=== PATIENT | male | born 1975 | race Caucasian/White ===

== ENCOUNTER 2021-06-13 19:16 | Inpatient (IN) | payer BC, OTHER ==
[2021-06-14] MEDS ORDERED: PIPERACILLIN-TAZOBACTAM 3.375 GM in SODIUM CHLORIDE 0.9% 100 ML IVPB STA (00:02)
[2021-06-14] MEDS ORDERED: ACETAMINOPHEN TAB 500 MG TAB PO STA (00:02)
[2021-06-14] MEDS ORDERED: IBUPROFEN 600 MG TAB PO STA (00:02)
[2021-06-14] MEDS ORDERED: VANCOMYCIN IV PER PHARMACY 1 EACH MISC MISCELLANE PRN ×2 (00:03→04:57)
[2021-06-14] MEDS ORDERED: ONDANSETRON 4 MG/2 ML VIAL IVP STA (00:04)
[2021-06-14] MEDS ORDERED: HYDROmorphone 1 MG/ML 1 ML SYRINGE IVP STA (00:04)
[2021-06-14] MEDS ORDERED: VANCOMYCIN 1,250 MG in SODIUM CHLORIDE 0.9% 250 ML IVPB ONE (00:15)
[2021-06-14 00:43] LABS: Basophils # (A) 0.1 k/uL (0-0.2); Basophils % (A) 0 %; Eosinophils # (A) 0.1 k/uL (0-0.7); Eosinophils % (A) 1 %; HCT 42.7 % (39.0-53.0); HGB 14.9 gm/dL (13.0-17.5); Lymphocytes # (A) 0.7 k/uL (1.0-4.8); Lymphocytes % (A) 4 %; MCH 34.3 pg (25.0-35.0); MCV 98.1 fL (80.0-100.0); Mean Platelet Volume 8.5; Monocytes # (A) 1.2 k/uL (0-1.0); Monocytes % (A) 6 %; Neutrophils # (A) 17.3 k/uL (1.3-7.7); Neutrophils % (A) 88 %; Platelet Count 205 k/uL (150-450); RBC 4.35 m/uL (4.30-5.90); RDW 12.4 % (11.5-15.5); WBC 19.7 k/uL (3.8-10.6)
--- NOTE | 2021-06-14 00:50 | XR ---
EXAMINATION TYPE: XR hand complete RT DATE OF EXAM: 06/14/2021 COMPARISON: NONE HISTORY: Hand infection TECHNIQUE: 3 views FINDINGS: Metacarpals are intact. I see no fracture nor dislocation. Joint spaces are normal. There i s soft tissue swelling around the hand. IMPRESSION: Soft tissue swelling. No fracture. No sign of osteomyelitis.
[2021-06-14] MEDS: SODIUM CHLORIDE 0.9% 500 ML 500 ML IV SCH ×3 (00:59→01:02)
[2021-06-14 01:02] LABS: Albumin 3.8 g/dL (3.5-5.0); Calcium 8.8 mg/dL (8.4-10.2); Potassium 4.1 mmol/L (3.5-5.1); Total Bilirubin 0.7 mg/dL (0.2-1.3); Total Protein 7.1 g/dL (6.3-8.2)
[2021-06-14 01:19] LABS: INR 0.9 (<1.2); Partial Thromboplastin Time 26.6 sec (22.0-30.0); Prothrombin Time 9.7 sec (9.0-12.0)
[2021-06-14] MEDS ORDERED: ONDANSETRON 4 MG/2 ML VIAL IVP PRN (01:42)
[2021-06-14] MEDS ORDERED: HYDROmorphone 1 MG/ML 1 ML SYRINGE IVP PRN ×2 (01:42→13:20)
[2021-06-14] MEDS ORDERED: NALOXONE 0.4 MG/ML 1 ML VIAL IV PRN (01:42)
--- NOTE | 2021-06-14 01:44 | ED ---
Skin/Abscess/FB HPI - General Chief complaint: Skin/Abscess/Foreign Body Stated complaint: Cellulitis Time Seen by Provider: 06/13/21 23:41 Source: patient, family Mode of arrival: ambulatory Limitations: no limitations - History of Present Illness Initial comments: 45 year-old male patient presents to the emergency department for evaluation of right hand pain and swelling. Patient state he had injury at work several days ago. States that hand began swelling a 2-3 days ago and has been getting worse. States that it hurts to move his fingers. He denies known fever or chills. Denies history of diabetes or similar symptoms. Denies taking any medication for his symptoms. - Related Data Previous Rx's Medication Instructions Recorded Cyclobenzaprine [Flexeril] 5 mg PO HS 3 Days tablet 08/17/16 Ibuprofen [Motrin] 200 - 400 mg PO Q6HR 7 Days tab 08/17/16 Allergies Allergy/AdvReac Type Severity Reaction Status Date / Time No Known Allergies Allergy Verified 06/13/21 20:35 Review of Systems ROS Statement: Those systems with pertinent positive or pertinent negative responses have been documented in the HPI. ROS Other: All systems not noted in ROS Statement are negative. Past Medical History Past Medical History: No Reported History History of Any Multi-Drug Resistant Organisms: None Reported Past Surgical History: No Surgical Hx Reported Past Psychological History: No Psychological Hx Reported Smoking Status: Never smoker Past Alcohol Use History: None Reported Past Drug Use History: None Reported General Exam Limitations: no limitations General appearance: alert, in no apparent distress, other (This is a well- developed, well-nourished adult male patient in no acute distress. Vital signs upon presentation to 199.0F and pulse 106, respirations 22, blood pressure 150/97, pulse ox 97% on room air.) ENT exam: Present: normal exam, normal oropharynx, mucous membranes moist Respiratory exam: Present: normal lung sounds bilaterally. Absent: respiratory distress, wheezes, rales, rhonchi, stridor Cardiovascular Exam: Present: regular rate, normal rhythm, normal heart sounds. Absent: systolic murmur, diastolic murmur, rubs, gallop, clicks GI/Abdominal exam: Present: soft, normal bowel sounds. Absent: distended, tenderness, guarding, rebound, rigid Extremities exam: Present: full ROM, normal capillary refill, other (There is significant soft tissue swelling to the right hand and fingers, especially the right middle finger. There is streaking erythema up the right forearm. No axillary lymphadenopathy.). Absent: normal inspection, tenderness, pedal edema, joint swelling, calf tenderness Neurological exam: Present: alert, oriented X3, CN II-XII intact Psychiatric exam: Present: normal affect, normal mood Skin exam: Present: warm, dry, intact, normal color. Absent: rash Course Vital Signs 06/13/21 06/14/21 20:30 00:00 Temperature 99 F 101.2 F H Pulse Rate 106 H Respiratory 22 Rate Blood Pressure 158/97 O2 Sat by Pulse 97 Oximetry Medical Decision Making - Medical Decision Making 45-year-old male patient presents to the emergency department today for evaluation of right hand swelling and erythema, worse over the middle finger. Middle fingers concerning for tenosynovitis. Labs reviewed and did reveal white blood cell count of 19.7, sodium 129, but BUN 27, creatinine 1.8. Glucose 200. X-ray of the hand is negative. He will be admitted with IV antibiotics. Consult to orthopedics. My attending is Dr. Miranda. - Lab Data Result diagrams: 06/14/21 00:27 06/14/21 00:27 Lab Results 06/14/21 06/14/21 06/14/21 Range/Units 00:27 00:27 00:27 WBC 19.7 H (3.8-10.6) k/uL RBC 4.35 (4.30-5.90) m/uL Hgb 14.9 (13.0-17.5) gm/dL Hct 42.7 (39.0-53.0) % MCV 98.1 (80.0-100.0) fL MCH 34.3 (25.0-35.0) pg MCHC 35.0 (31.0-37.0) g/dL RDW 12.4 (11.5-15.5) % Plt Count 205 (150-450) k/uL MPV 8.5 Neutrophils % 88 % Lymphocytes % 4 % Monocytes % 6 % Eosinophils % 1 % Basophils % 0 % Neutrophils # 17.3 H (1.3-7.7) k/uL Lymphocytes # 0.7 L (1.0-4.8) k/uL Monocytes # 1.2 H (0-1.0) k/uL Eosinophils # 0.1 (0-0.7) k/uL Basophils # 0.1 (0-0.2) k/uL PT 9.7 (9.0-12.0) sec INR 0.9 (<1.2) APTT 26.6 (22.0-30.0) sec Sodium (137-145) mmol/L Potassium (3.5-5.1) mmol/L Chloride (98-107) mmol/L Carbon Dioxide (22-30) mmol/L Anion Gap mmol/L BUN (9-20) mg/dL Creatinine (0.66-1.25) mg/dL Est GFR (CKD-EPI)AfAm (>60 ml/min/1.73 sqM) Est GFR (CKD-EPI)NonAf (>60 ml/min/1.73 sqM) Glucose (74-99) mg/dL Plasma Lactic Acid Remy (0.7-2.0) mmol/L Calcium (8.4-10.2) mg/dL Total Bilirubin (0.2-1.3) mg/dL AST (17-59) U/L ALT (4-49) U/L Alkaline Phosphatase (38-126) U/L Total Protein (6.3-8.2) g/dL Albumin (3.5-5.0) g/dL Urine Color Yellow Urine Appearance Clear (Clear) Urine pH 6.0 (5.0-8.0) Ur Specific [place] 1.012 (1.001-1.035) Urine Protein 3+ H (Negative) Urine Glucose (UA) Trace H (Negative) Urine Ketones Negative (Negative) Urine Blood Trace H (Negative) Urine Nitrite Negative (Negative) Urine Bilirubin Negative (Negative) Urine Urobilinogen <2.0 (<2.0) mg/dL Ur Leukocyte Esterase Negative (Negative) Urine RBC 2 (0-5) /hpf Urine WBC 30 H (0-5) /hpf Ur Squamous Epith Cells <1 (0-4) /hpf Amorphous Sediment Rare H (None) /hpf Hyaline Casts 131 H (0-2) /lpf Urine Mucus Rare H (None) /hpf Coronavirus (PCR) (Not Detectd) 06/14/21 06/14/21 06/14/21 Range/Units 00:27 00:27 01:09 WBC (3.8-10.6) k/uL RBC (4.30-5.90) m/uL Hgb (13.0-17.5) gm/dL Hct (39.0-53.0) % MCV (80.0-100.0) fL MCH (25.0-35.0) pg MCHC (31.0-37.0) g/dL RDW (11.5-15.5) % Plt Count (150-450) k/uL MPV Neutrophils % % Lymphocytes % % Monocytes % % Eosinophils % % Basophils % % Neutrophils # (1.3-7.7) k/uL Lymphocytes # (1.0-4.8) k/uL Monocytes # (0-1.0) k/uL Eosinophils # (0-0.7) k/uL Basophils # (0-0.2) k/uL PT (9.0-12.0) sec INR (<1.2) APTT (22.0-30.0) sec Sodium 129 L (137-145) mmol/L Potassium 4.1 (3.5-5.1) mmol/L Chloride 94 L (98-107) mmol/L Carbon Dioxide 21 L (22-30) mmol/L Anion Gap 14 mmol/L BUN 27 H (9-20) mg/dL Creatinine 1.80 H (0.66-1.25) mg/dL Est GFR (CKD-EPI)AfAm 51 (>60 ml/min/1.73 sqM) Est GFR (CKD-EPI)NonAf 44 (>60 ml/min/1.73 sqM) Glucose 200 H (74-99) mg/dL Plasma Lactic Acid Remy 1.3 (0.7-2.0) mmol/L Calcium 8.8 (8.4-10.2) mg/dL Total Bilirubin 0.7 (0.2-1.3) mg/dL AST 34 (17-59) U/L ALT 26 (4-49) U/L Alkaline Phosphatase 97 (38-126) U/L Total Protein 7.1 (6.3-8.2) g/dL Albumin 3.8 (3.5-5.0) g/dL Urine Color Urine Appearance (Clear) Urine pH (5.0-8.0) Ur Specific [place] (1.001-1.035) Urine Protein (Negative) Urine Glucose (UA) (Negative) Urine Ketones (Negative) Urine Blood (Negative) Urine Nitrite (Negative) Urine Bilirubin (Negative) Urine Urobilinogen (<2.0) mg/dL Ur Leukocyte Esterase (Negative) Urine RBC (0-5) /hpf Urine WBC (0-5) /hpf Ur Squamous Epith Cells (0-4) /hpf Amorphous Sediment (None) /hpf Hyaline Casts (0-2) /lpf Urine Mucus (None) /hpf Coronavirus (PCR) Not Detected (Not Detectd) - Radiology Data Radiology results: report reviewed, image reviewed 3 views of the right hand are obtained. Report was reviewed in its entirety. Impression by Dr. Sepulveda shows soft tissue swelling. No fracture. No sign of osteomyelitis. Disposition Clinical Impression: Cellulitis of right hand, Sepsis, Tenosynovitis of right hand Disposition: ADMITTED IP TO THIS [facility] Condition: Serious Decision to Admit Reason: Admit from EC Decision Date: 06/14/21 Decision Time: 01:44
[2021-06-14] MEDS: SODIUM CHLORIDE 0.9% 1,000 ML IV SCH ×3 (01:56→19:26)
[2021-06-14 01:58] LABS: Amorphous Sediment,Urine Rare /hpf; Appearance,Urine Clear (Clear); Bilirubin,Urine Negative (Negative); Blood,Urine Trace (Negative); Color,Urine Yellow; Glucose,Urine (UA) Trace (Negative); Hyaline Casts,Urine 131 /lpf (0-2); Ketones,Urine Negative (Negative); Leukocyte Esterase,Urine Negative (Negative); Mucus,Urine Rare /hpf; Nitrite,Urine Negative (Negative); Protein,Urine 3+ (Negative); RBC,Urine 2 /hpf (0-5); Specific Gravity,Urine 1.012 (1.001-1.035); Squamous Epithelial Cell,Urine <1 /hpf (0-4); Urobilinogen,Urine <2.0 mg/dL (<2.0); WBC,Urine 30 /hpf (0-5)
--- NOTE | 2021-06-14 05:03 | P.HPIM ---
History of Present Illness H&P Date: 06/14/21 Chief Complaint: Right hand swelling 45-year-old male with significant past medical history Patient comes in due to progressive swelling pain and loss of function of his right hand which has been going on and progressively getting worse over the past 3 days he recalls injury while working on some projects with his hands prior to that which she didn't think much of it at the time. He denies any fevers or chills denies any nausea vomiting denies any chest pain trouble breathing. He denies any numbness or tingling at his fingertips In the ED he was evaluated suspected to have sepsis with infection of the right hand swelling is mainly over the middle finger imaging showed no acute fractures Review of Systems Pertinent positives as noted in HPI. All other systems were reviewed and are negative Past Medical History Past Medical History: No Reported History History of Any Multi-Drug Resistant Organisms: None Reported Past Surgical History: No Surgical Hx Reported Past Psychological History: No Psychological Hx Reported Smoking Status: Never smoker Past Alcohol Use History: None Reported Past Drug Use History: None Reported - Past Family History Family Family Medical History: No Reported History Medications and Allergies Home Medications Medication Instructions Recorded Confirmed Type Cyclobenzaprine [Flexeril] 5 mg PO HS 3 Days tablet 08/17/16 Rx Ibuprofen [Motrin] 200 - 400 mg PO Q6HR 7 Days tab 08/17/16 Rx Allergies Allergy/AdvReac Type Severity Reaction Status Date / Time No Known Allergies Allergy Verified 06/13/21 20:35 Physical Exam Vitals: Vital Signs Temp Pulse Resp BP Pulse Ox 06/14/21 00:00 101.2 F H 06/13/21 20:30 99 F 106 H 22 158/97 97 Intake and Output 06/13/21 06/13/21 06/14/21 14:59 22:59 06:59 Other: Weight 68.039 kg Constitutional: No acute distress, conversant, pleasant Eyes: Anicteric sclerae, moist conjunctiva, Pupils equal round reactive to light ENMT: NC/AT Oropharynx clear, no erythema, or exudates Neck: Supple, FROM, no masses, or JVD No carotid bruits No thyromegaly Lungs: Clear to auscultation Clear to percussion Normal respiratory effort, no accessory muscle use Cardiovascular: Heart regular in rate and rhythm, No murmurs, gallops, or rubs No peripheral edema Abdominal: Soft Nontender, no guarding, rebound or rigidity Abdomen moving with respiration Normoactive bowel sounds No hepatomegaly, No splenomegaly No palpable mass No abdominal wall hernia noted Skin: Normal temperature, tone, texture, turgor No induration No subcutaneous nodules No rash, lesions No ulcers Extremities: Right hand swelling mainly over the right middle finger with area of small superficial hematoma, tenderness to palpation capillary refill is immediate limited range of motion due to swelling and pain. No digital cyanosis No clubbing Pedal pulses intact and symmetrical Radial pulses intact and symmetrical No calf tenderness Psychiatric: Alert and oriented to person, place and time Appropriate affect fair judgement Neuro Muscles Strength 5/5 in all 4 extremities limited exam over the right hand due to pain and swelling Sensation to light touch grossly present throughout Cranial nerves II-XII grossly intact No focal sensory deficits Lymphatics: no palpable cervical or supraclavicular , or inguinal lymph nodes Results CBC & Chem 7: 06/14/21 00:27 06/14/21 00:27 Labs: Abnormal Lab Results - Last 24 Hours (Table) 06/14/21 06/14/21 Range/Units 00:27 00:27 WBC 19.7 H (3.8-10.6) k/uL Neutrophils # 17.3 H (1.3-7.7) k/uL Lymphocytes # 0.7 L (1.0-4.8) k/uL Monocytes # 1.2 H (0-1.0) k/uL Sodium 129 L (137-145) mmol/L Chloride 94 L (98-107) mmol/L Carbon Dioxide 21 L (22-30) mmol/L BUN 27 H (9-20) mg/dL Creatinine 1.80 H (0.66-1.25) mg/dL Glucose 200 H (74-99) mg/dL Assessment and Plan Assessment: Sepsis secondary of right hand cellulitis Rule out hematoma, x-ray showed no evidence of acute fractures Antibiotics vancomycin Follow-up cultures Orthopedic surgery evaluation Lactic acid unremarkable Pain control with opiates Regular exams of neurovascular bundle over the right hand Acute kidney injury Hyponatremia IV fluid hydration with normal saline Avoid nephrotoxic meds Check creatine kinase Monitor urine output Monitor renal function Patient is full code DVT prophylaxis mechanical Anticipated length of stay more than 2 midnights Anticipated discharge
[2021-06-14 07:42] LABS: African American GFR (CKD) 42 (>60 ml/min/1.73 sqM); Anion Gap 9 mmol/L; Blood Urea Nitrogen 27 mg/dL (9-20); Carbon Dioxide 24 mmol/L (22-30); Chloride 100 mmol/L (98-107); Creatine Kinase 125 U/L (55-170); Glucose 119 mg/dL (74-99); Non-African American GFR(CKD) 36 (>60 ml/min/1.73 sqM); Potassium 3.7 mmol/L (3.5-5.1); Sodium 133 mmol/L (137-145)
--- NOTE | 2021-06-14 11:10 | P.NPCON ---
History of Present Illness - Reason for Consult acute renal failure - History of Present Illness Reason for consultation: Acute kidney injury History of present illness: Patient is a 45-year-old male seen in renal consultation for acute kidney injury. Unknown baseline renal function. Patient denies any history of kidney disease. Creatinine was 1.8 on admission and is up 2.1 this morning. Patient states he jammed his right finger about 4 days ago and the swelling has gotten worse. Patient states he iced it and also had a dropped without any improvement. He denies history of diabetes. Denies chest pain or shortness of breath. No edema. No hematuria or dysuria. No vomiting or diarrhea. Oral intake has been good. He denies regular use of nonsteroidals. He is currently receiving IV antibiotics. He also received a dose of Motrin in the ER. He did have a fever of 101.2F overnight. This morning his temperature was 98.8. Blood pressure stable. No hypotension noted. Denies family history of renal disease. No cough. He tested negative for coronavirus. Vital signs are stable. General: The patient appeared well nourished and normally developed. HEENT: Head exam is unremarkable. LUNGS: Breath sounds decreased. HEART: Rate and Rhythm are regular. ABDOMEN: Soft, no distention. EXTREMITITES: No edema. Past Medical History Past Medical History: No Reported History History of Any Multi-Drug Resistant Organisms: None Reported Past Surgical History: No Surgical Hx Reported Past Psychological History: No Psychological Hx Reported Smoking Status: Never smoker Past Alcohol Use History: None Reported Past Drug Use History: None Reported - Past Family History Family Family Medical History: No Reported History Medications and Allergies Home Medications Medication Instructions Recorded Confirmed Type Acetaminophen Tab [Tylenol Tab] 500 mg PO Q6H PRN 06/14/21 06/14/21 History Bimatoprost [Lumigan .01% Ophth 1 drop RIGHT EYE HS 06/14/21 06/14/21 History Soln] Allergies Allergy/AdvReac Type Severity Reaction Status Date / Time No Known Allergies Allergy Verified 06/14/21 07:56 Physical Exam Vitals: Vital Signs Temp Pulse Resp BP Pulse Ox 06/14/21 09:26 98.8 F 73 18 133/93 98 06/14/21 04:51 97.6 F 81 18 123/80 96 06/14/21 00:00 101.2 F H 06/13/21 20:30 99 F 106 H 22 158/97 97 Intake and Output 06/13/21 06/14/21 06/14/21 22:59 06:59 14:59 Other: Weight 68.039 kg Results - Lab Results Most recent lab results Calcium 8.0 mg/dL (8.4-10.2) L 06/14/21 05:36 06/14/21 00:27 06/14/21 05:36 Assessment and Plan Plan: Assessment: 1. Acute kidney injury secondary to ATN secondary to infection. Creatinine 1.8 on admission is 2.1 today. Unknown baseline renal function. 3+ proteinuria on UA. 2. Right hand infection on antibiotics. 3. Hypovolemic hyponatremia improved with IV hydration. 4. Metabolic acidosis secondary to acute kidney injury. Improved. 5. Elevated blood sugar. A1c pending. Plan: Repeat UA. Quantify proteinuria. Check renal ultrasound. Decrease rate of normal saline to 75 mL an hour. Avoid nephrotoxins. Continue to monitor renal function and urine output. Follow-up cultures. Thank you for the consultation. I will continue to follow the patient with you during her hospital stay.
--- NOTE | 2021-06-14 11:48 | P.PN ---
Progress Note - Text Progress Note Date: 06/14/21 Agree with consultation by Dariusz De Luna PA-C. Briefly the patient has developed progressively worsening pain, erythema, and fusiform swelling of the right middle finger following a work-related injury this past Wednesday when he jammed his finger. He has had subjective fevers and chills over the last 24 hours. He came to the emergency department overnight and had signs and symptoms of purulent flexor tenosynovitis, acute kidney injury secondary to infection, and a markedly elevated white count and CRP. I met with the patient and his father in the emergency department room and examined his hand. Clinically he has 4 out of 4 [place] signs (flexed posture of the finger, exquisite tenderness along the flexor tendon, severe pain with passive flexion of the finger, and fusiform swelling of the finger) as well as blistering of the skin over the dorsum of the finger and acsending erythema up the forearm. His creatinine has also progressively worsened since he's been in the emergency department and a nephrology consult thinks this is likely due from acute tubular necrosis secondary to infection. Due to the whole clinical picture I recommended emergent irrigation and debridement of the finger. We discussed formal open debridement with a Ngozi type incision versus small incision angiocatheter irrigation of the flexor tendon. Due to severity of his presentation my recommendation was to a formal open debridement with a Ngozi- type incision. The patient and his dad understand the emergent nature of this infection and agree with proceeding with an open debridement. We discussed the potential risks and complications at length. These include but are certainly not limited to risk of continued or worsened infection requiring further procedures, damage to local blood vessels or nerves, stiffness, tendon genet rupture, spread of infection, loss of soft tissue, increased use of the finger or hand, and possibly loss of life or limb. The patient and his dad voiced understanding of all these potential complications and also acknowledges that other less common complications are possible. We'll plan on taking the patient to the operating room for formal irrigation and debridement later this afternoon. I would also recommend infectious disease consultation to manage antibiotics.
--- NOTE | 2021-06-14 11:50 | P.CNOR ---
History of Present Illness - HPI Consult date: 06/14/21 History of present illness: This patient is a 45- year old male who is otherwise healthy that presented to [facility] ER on 06/14/21 with complaints of right hand swelling and pain. He states he jammed his hand about a week ago, and he has noticed increasing swelling, erythema, pain of the right hand, and specifically the right middle finger over the past 2-3 days. He originally presented to urgent care, who then sent the patient to the emergency department. Patient was started on IV antibiotics and admitted under the care of internal medicine with a consult placed to orthopedic surgery. Patient's creatinine was also elevated in the ER, therefore nephrology was consulted for evaluation of RONNY. Patient is seen and examined in the emergency department this morning. He notes right middle finger pain. He denies pain in the right forearm, wrist, hand. His pain is localized to the right middle finger. He states he otherwise feels well and denies fevers, chills, nausea, vomiting. He has not eaten today. Patient was febrile this morning at 101.2F, current temperature is 98.8. Past Medical History Past Medical History: No Reported History History of Any Multi-Drug Resistant Organisms: None Reported Past Surgical History: No Surgical Hx Reported Past Psychological History: No Psychological Hx Reported Smoking Status: Never smoker Past Alcohol Use History: None Reported Past Drug Use History: None Reported - Past Family History Family Family Medical History: No Reported History Medications and Allergies Home Medications Medication Instructions Recorded Confirmed Type Acetaminophen Tab [Tylenol Tab] 500 mg PO Q6H PRN 06/14/21 06/14/21 History Bimatoprost [Lumigan .01% Ophth 1 drop RIGHT EYE HS 06/14/21 06/14/21 History Soln] Allergies Allergy/AdvReac Type Severity Reaction Status Date / Time No Known Allergies Allergy Verified 06/14/21 07:56 Physical Examination On examination, patient is laying in bed in no apparent distress. He is alert and orientated x3. A focused examination of the right hand is conducted. On inspection of the right hand, there is diffuse swelling and erythema of the hand. There is fusiform swelling of the right middle finger. Patient is holding the middle finger in a flexed position. Small area of ecchymosis of the dorsal finger. No open wounds, lacerations. There is severe pain with palpation of the flexor tenon of the middle finger. There is no pain with palpation of the remaining fingers, thumb, hand, wrist, forearm, elbow. There is severe pain with passive flexion and extension of the middle finger. The hand and fingers are warm and well perfused. Motor and sensory function intact. Results Right hand x-ray 06/14/21: No acute or healing fractures. No acute bony abnorm alities. - Labs Labs: Abnormal Lab Results - Last 24 Hours (Table) 06/14/21 06/14/21 06/14/21 Range/Units 00:27 00:27 00:27 WBC 19.7 H (3.8-10.6) k/uL Neutrophils # 17.3 H (1.3-7.7) k/uL Lymphocytes # 0.7 L (1.0-4.8) k/uL Monocytes # 1.2 H (0-1.0) k/uL Sodium 129 L (137-145) mmol/L Chloride 94 L (98-107) mmol/L Carbon Dioxide 21 L (22-30) mmol/L BUN 27 H (9-20) mg/dL Creatinine 1.80 H (0.66-1.25) mg/dL Glucose 200 H (74-99) mg/dL Calcium (8.4-10.2) mg/dL C-Reactive Protein (<1.0) mg/dL Urine Protein 3+ H (Negative) Urine Glucose (UA) Trace H (Negative) Urine Blood Trace H (Negative) Urine WBC 30 H (0-5) /hpf Amorphous Sediment Rare H (None) /hpf Hyaline Casts 131 H (0-2) /lpf Urine Mucus Rare H (None) /hpf 06/14/21 06/14/21 Range/Units 05:36 05:36 WBC (3.8-10.6) k/uL Neutrophils # (1.3-7.7) k/uL Lymphocytes # (1.0-4.8) k/uL Monocytes # (0-1.0) k/uL Sodium 133 L (137-145) mmol/L Chloride (98-107) mmol/L Carbon Dioxide (22-30) mmol/L BUN 27 H (9-20) mg/dL Creatinine 2.10 H (0.66-1.25) mg/dL Glucose 119 H (74-99) mg/dL Calcium 8.0 L (8.4-10.2) mg/dL C-Reactive Protein 32.3 H (<1.0) mg/dL Urine Protein (Negative) Urine Glucose (UA) (Negative) Urine Blood (Negative) Urine WBC (0-5) /hpf Amorphous Sediment (None) /hpf Hyaline Casts (0-2) /lpf Urine Mucus (None) /hpf Microbiology - Last 24 Hours (Table) 06/14/21 00:27 Urine Culture - Preliminary Urine,Voided H & H 06/14/21 Range/Units 00:27 Hgb 14.9 (13.0-17.5) gm/dL Hct 42.7 (39.0-53.0) % Coagulation 06/14/21 Range/Units 00:27 INR 0.9 (<1.2) Result Diagrams: 06/14/21 00:27 06/14/21 05:36 Assessment and Plan Assessment: Acute flexor tenosynovitis, right middle finger Plan: - The clinical and imaging findings were discussed with the patient. The patient was also seen and examined by Dr. Clarke. Recommend formal incision and drainage of the right middle finger today in the operating room. Patient is agreeable to this plan. - Continue IV antibiotics per admitting team. - Medical management per internal medicine, nephrology. - NPO diet.
[2021-06-14] MEDS ORDERED: SODIUM CHLORIDE 0.9% 1,000 ML IV ONE (12:10)
[2021-06-14] MEDS ORDERED: SODIUM CHLORIDE 0.9% 100 ML with ceFAZolin 2,000 MG IV ONE ×2 (12:10)
[2021-06-14] MEDS ORDERED: PROPOFOL 10 MG/ML 20 ML VIAL IV ONE (12:12)
[2021-06-14] MEDS ORDERED: fentaNYL (PF) 50 MCG/ML 2 ML AMP ONE (12:12)
[2021-06-14] MEDS ORDERED: LIDOCAINE 1% INJ 10MG/ML (20 ML MDV) ONE (12:12)
[2021-06-14] MEDS ORDERED: SUCCINYLCHOLINE CHLORIDE 100 MG/5 ML SYR IV ONE (12:12)
[2021-06-14] MEDS ORDERED: ONDANSETRON 4 MG/2 ML VIAL ONE (12:12)
[2021-06-14] MEDS ORDERED: HYDROmorphone (PF) 1 MG/ML ONE (12:12)
[2021-06-14] MEDS ORDERED: MIDAZOLAM 2 MG/2 ML VIAL ONE (12:12)
[2021-06-14] MEDS ORDERED: LACTATED RINGERS 1,000 ML IV ONE (12:37)
[2021-06-14] MEDS ORDERED: HYDROmorphone 0.5 MG/0.5 ML SYRINGE IVP PRN (13:20)
[2021-06-14] MEDS ORDERED: HYDROcodone/APAP 5-325MG 1 EACH TAB PO PRN (13:20)
[2021-06-14] MEDS ORDERED: SENNOSIDES-DOCUSATE SODIUM 1 EACH TAB PO PRN (13:20)
[2021-06-14] MEDS ORDERED: HYDROmorphone 0.2 MG/1 ML SYRINGE IVP PRN (13:20)
--- NOTE | 2021-06-14 13:32 | P.OP ---
Date of Procedure: 06/14/21 Preoperative Diagnosis: 1. Right middle finger purulent flexor tenosynovitis 2. Right dorsal middle finger abscess Postoperative Diagnosis: Same Procedure(s) Performed: Irrigation and debridement right middle finger flexor tendon sheath and dorsal extensor tendon sheath Anesthesia: VERA Surgeon: Simon Clarke Cartography Technician #1: Dariusz De Luna Estimated Blood Loss (ml): 50 IV fluids (ml): 500 Pathology: other (Deep cultures) Condition: stable Disposition: PACU Indications for Procedure: The patient is a very pleasant. She healthy right-hand dominant 45-year-old male who jammed his finger at work this past Wednesday. He developed progressively worsening pain, swelling, and erythema in the middle finger to the point that he developed fevers and chills and came to the emergency department last night. He was found to have a significant infection in the right middle finger consistent with purulent flexor tenosynovitis area and he had developed acute tubular necrosis, had a markedly elevated CRP and white blood count and was febrile. My recommendation was to taken back to the operating room urgently for irrigation and debridement of the right middle finger. I discussed potential risks and competitions of surgery at length with the patient his dad for surgery. These potential risks include but are certainly not limited to risk of continued or worsened infection requiring further surgery, damage to blood vessels or nerves, flexor tendon rupture, flexor tendin genet rupture, significant stiffness of the finger, decreased use of the right hand and middle finger, dissatisfaction with his surgical outcome, systemic infection, and possibly loss of life or limb. The patient voiced his understanding of this and provided his consent to go forward with surgery. Operative Findings: There was a large amount of gross purulence in the right middle finger flexor tendon sheath and a small amount of purulence over the dorsal aspect of the right middle finger MCP joint. There was no evidence of septic arthritis of the MCP joint. Description of Procedure: The patient was identified in preoperative holding and the correct right upper extremity and middle finger were marked with my initials. I reviewed the consent form with the patient and his dad. All of their questions were answered. The patient was then brought back to the operating room by anesthes ia. He was given a general anesthetic while on the gurney. The table was then turned 90 to anesthesia and an armboard was placed under the right arm. A tourniquet was applied to the proximal aspect of the arm but was not used during the surgery. A pre-scrub was performed to the right arm with a chlorhexidine scrub brush. The right arm was then prepped and draped in the standard sterile fashion. A timeout was then performed identifying the correct patient, operative extremity, and procedure. The operative hand was placed in a lead hand guevara to facilitate positioning of the hand. A Ngozi type zigzag incision was made over the volar aspect of the middle finger. Skin incision was made with a scalpel and dissection was carried out with tenotomy scissors down to the flexor tendon sheath. Immediately upon dissecting down to the flexor tendon sheath there was a large rasheed of gross purulence. This was sent for cultures. I then used the tenotomy scissors to break up loculations and make sure there was no contiguous spread of infection in the hand. 3 L of sterile saline was then used to irrigate the hand and middle finger with cystoscopy tubing. Attention was then turned to the dorsum of the hand. A longitudinal incision was made over the dorsal aspect of the middle finger MCP joint extending proximally and distally. Dissection was with a scalpel and dissection was carried down carefully with tenotomy scissors. There is a small amount of purulence expressed. The extensor tendon sheath was opened, the extensor tendon retracted, and the MCP joint was opened. There did not appear to be purulence in the joint. This wound was then thoroughly irrigated with sterile saline using cystoscopy tubing. Both wounds were then loosely reapproximated using 3-0 nylon. The tip of the middle finger was well perfused with brisk capillary refill. A sterile dressing consisting of nonadherent Adaptic, 4 x 4's, fluffs, Kerlix and an Jaspreet wrap was applied. I verified that all instrument, sponge, and sharp counts were correct area the patient was then awoken from his anesthetic, extubated, and brought to recovery having tolerated the procedure well. Plan: Deep cultures were taken intraoperatively. I recommend IV antibiotics under the direction of infectious disease. We will leave the surgical dressing on for 24 hours and reassess his hand. I discussed both with the patient and his father the possibility of requiring a second debridement if he fails to improve or his infection worsens. We also discussed the possibility of getting a computed tomography scan with contrast to rule out any proximal extension of the infection and his forearm.
[2021-06-14] MEDS ORDERED: VANCOMYCIN 1,250 MG in SODIUM CHLORIDE 0.9% 250 ML IVPB SCH (16:00)
[2021-06-14 17:10] LABS: Basophils % (A) 0 %; Eosinophils # (A) 0.1 k/uL (0-0.7); Eosinophils % (A) 0 %; HGB 12.9 gm/dL (13.0-17.5); Lymphocytes # (A) 0.5 k/uL (1.0-4.8); Lymphocytes % (A) 3 %; MCH 32.9 pg (25.0-35.0); MCHC 32.3 g/dL (31.0-37.0); MCV 101.9 fL (80.0-100.0); Mean Platelet Volume 8.4; Monocytes % (A) 6 %; Neutrophils # (A) 15.3 k/uL (1.3-7.7); Neutrophils % (A) 90 %; Platelet Count 194 k/uL (150-450); RBC 3.92 m/uL (4.30-5.90); RDW 12.5 % (11.5-15.5)
[2021-06-14] MEDS: LACTATED RINGERS 1,000 ML IV SCH ×2 (19:21→23:40)
[2021-06-14] MEDS: VANCOMYCIN 1,250 MG in SODIUM CHLORIDE 0.9% 250 ML IVPB SCH (20:29)
--- NOTE | 2021-06-14 23:26 | US ---
EXAMINATION TYPE: US kidneys/renal and bladder DATE OF EXAM: 06/14/2021 COMPARISON: NONE CLINICAL HISTORY: ronny. RONNY. EXAM MEASUREMENTS: Right Kidney: 11.6 x 6.4 x 6.0 cm Left Kidney: 10.8 x 5.6 x 6.0 cm Right Kidney: Cortex appears thin. Left Kidney: Cortex appears thin. Hyperechoic focus seen: 0.4 x 0.5 x 0.2 cm. Bladder: Appears anechoic. Bilateral Jets seen: No IMPRESSION: No evidence of solid renal mass or obstruction. No renal cortical atrophy seen.
[2021-06-15] MEDS: SODIUM CHLORIDE 0.9% 1,000 ML IV SCH (00:30)
[2021-06-15] MEDS ORDERED: VANCOMYCIN 1,250 MG in SODIUM CHLORIDE 0.9% 250 ML IVPB SCH (03:00)
[2021-06-15 07:14] LABS: ALT 22 U/L (4-49); AST 30 U/L (17-59); African American GFR (CKD) >90 (>60 ml/min/1.73 sqM); Albumin 2.7 g/dL (3.5-5.0); Alkaline Phosphatase 92 U/L (38-126); Anion Gap 8 mmol/L; Blood Urea Nitrogen 16 mg/dL (9-20); Calcium 8.2 mg/dL (8.4-10.2); Carbon Dioxide 21 mmol/L (22-30); Chloride 105 mmol/L (98-107); Globulin 2.7 g/dL; Glucose 113 mg/dL (74-99); Magnesium 2.1 mg/dL (1.6-2.3); Non-African American GFR(CKD) 87 (>60 ml/min/1.73 sqM); Potassium 3.8 mmol/L (3.5-5.1); Sodium 134 mmol/L (137-145); Total Bilirubin 0.8 mg/dL (0.2-1.3); Total Protein 5.4 g/dL (6.3-8.2)
[2021-06-15 09:16] LABS: C Reactive Protein 31.8 mg/dL (<1.0)
--- NOTE | 2021-06-15 10:43 | P.PN ---
Subjective Progress Note Date: 06/15/21 This patient is a 45-year-old male who is status-post irrigation and debridement of the right middle finger flexor tendon sheath and dorsal extensor tendon sheath on 06/14/[address] Clarke. Today's post-operative day #1. Patient is seen and examined bedside. He states his right hand pain has improved significantly post-operatively. He states he is experiencing minimal pain in the right hand this morning, he states he has not required any pain medication. He is currently eating breakfast. He states he feels great today and has no complaints. He denies chest pain, shortness breath, nausea, vomiting, fevers, chills. Objective - Vital Signs Vital signs: Vital Signs Temp 99.8 F H 06/15/21 08:42 Pulse 96 06/15/21 08:42 Resp 16 06/15/21 08:42 BP 140/82 06/15/21 08:42 Pulse Ox 95 06/15/21 08:42 Intake & Output 06/14/21 06/15/21 06/15/21 18:59 06:59 18:59 Intake Total 1020 780 Output Total 6 Balance 1014 780 Weight 68.039 kg Intake: IV 900 Oral 120 780 Output: Urine 1 Estimated Blood Loss 5 Other: # Voids 1 - Exam On examination, the patient is sitting in bed in no apparent distress. He is alert and oriented 3. He is currently eating breakfast. On inspection of the right hand, there is a bulky dressing in place. There is no pain with palpation of the elbow, forearm, wrist. The visible portion of the distal middle finger is warm and well-perfused, with brisk capillary refill. Sensation is intact to light touch of the distal right middle finger. - Labs CBC & Chem 7: 06/14/21 16:24 06/15/21 06:37 Labs: Abnormal Lab Results - Last 24 Hours (Table) 06/14/21 06/14/21 06/14/21 Range/Units 05:36 05:36 16:24 WBC 17.0 H (3.8-10.6) k/uL RBC 3.92 L (4.30-5.90) m/uL Hgb 12.9 L (13.0-17.5) gm/dL MCV 101.9 H (80.0-100.0) fL Neutrophils # 15.3 H (1.3-7.7) k/uL Lymphocytes # 0.5 L (1.0-4.8) k/uL ESR 80 H (0-15) mm/hr Sodium (137-145) mmol/L Carbon Dioxide (22-30) mmol/L Glucose (74-99) mg/dL Calcium (8.4-10.2) mg/dL C-Reactive Protein 32.3 H (<1.0) mg/dL Total Protein (6.3-8.2) g/dL Albumin (3.5-5.0) g/dL 06/15/21 Range/Units 06:37 WBC (3.8-10.6) k/uL RBC (4.30-5.90) m/uL Hgb (13.0-17.5) gm/dL MCV (80.0-100.0) fL Neutrophils # (1.3-7.7) k/uL Lymphocytes # (1.0-4.8) k/uL ESR (0-15) mm/hr Sodium 134 L (137-145) mmol/L Carbon Dioxide 21 L (22-30) mmol/L Glucose 113 H (74-99) mg/dL Calcium 8.2 L (8.4-10.2) mg/dL C-Reactive Protein 31.8 H (<1.0) mg/dL Total Protein 5.4 L (6.3-8.2) g/dL Albumin 2.7 L (3.5-5.0) g/dL Microbiology - Last 24 Hours (Table) 06/14/21 00:27 Urine Culture - Final Urine,Voided 06/14/21 13:00 Gram Stain - Preliminary Hand - Right Wound Culture - Preliminary 06/14/21 00:50 Blood Culture - Preliminary Blood No Growth after 24 hours 06/14/21 00:27 Blood Culture - Preliminary Blood No Growth after 24 hours 06/14/21 13:00 Anaerobic Culture - Preliminary Hand - Right Assessment and Plan Assessment: Right middle finger purulent flexor tenosynovitis and right dorsal middle finger abscess status-post irrigation and debridement on 06/14/21. Post-operative day #1. Plan: - Leave operative dressings intact. Recommend rest, elevation of the right hand. - Intra-operative cultures currently pending. - Dr. Jackson has been consulted for antibiotic recommendations. - Medical management per internal medicine, infectious disease, nephrology. - We will follow patient closely.
--- NOTE | 2021-06-15 10:54 | P.PN ---
Subjective Patient is seen in follow-up for acute kidney injury. Renal function improved. Good urine output. No vomiting or diarrhea. Vital signs are stable. General: The patient appeared well nourished and normally developed. HEENT: Head exam is unremarkable. LUNGS: Breath sounds decreased. HEART: Rate and Rhythm are regular. ABDOMEN: Soft, no distention. EXTREMITITES: No edema. Objective - Vital Signs Vital signs: Vital Signs Temp 99.8 F H 06/15/21 08:42 Pulse 96 06/15/21 08:42 Resp 16 06/15/21 08:42 BP 140/82 06/15/21 08:42 Pulse Ox 95 06/15/21 08:42 Intake & Output 06/14/21 06/15/21 06/15/21 18:59 06:59 18:59 Intake Total 1020 780 Output Total 6 Balance 1014 780 Weight 68.039 kg Intake: IV 900 Oral 120 780 Output: Urine 1 Estimated Blood Loss 5 Other: # Voids 1 - Labs CBC & Chem 7: 06/14/21 16:24 06/15/21 06:37 Labs: Abnormal Lab Results - Last 24 Hours (Table) 06/14/21 06/14/21 06/14/21 Range/Units 05:36 05:36 16:24 WBC 17.0 H (3.8-10.6) k/uL RBC 3.92 L (4.30-5.90) m/uL Hgb 12.9 L (13.0-17.5) gm/dL MCV 101.9 H (80.0-100.0) fL Neutrophils # 15.3 H (1.3-7.7) k/uL Lymphocytes # 0.5 L (1.0-4.8) k/uL ESR 80 H (0-15) mm/hr Sodium (137-145) mmol/L Carbon Dioxide (22-30) mmol/L Glucose (74-99) mg/dL Calcium (8.4-10.2) mg/dL C-Reactive Protein 32.3 H (<1.0) mg/dL Total Protein (6.3-8.2) g/dL Albumin (3.5-5.0) g/dL 06/15/21 Range/Units 06:37 WBC (3.8-10.6) k/uL RBC (4.30-5.90) m/uL Hgb (13.0-17.5) gm/dL MCV (80.0-100.0) fL Neutrophils # (1.3-7.7) k/uL Lymphocytes # (1.0-4.8) k/uL ESR (0-15) mm/hr Sodium 134 L (137-145) mmol/L Carbon Dioxide 21 L (22-30) mmol/L Glucose 113 H (74-99) mg/dL Calcium 8.2 L (8.4-10.2) mg/dL C-Reactive Protein 31.8 H (<1.0) mg/dL Total Protein 5.4 L (6.3-8.2) g/dL Albumin 2.7 L (3.5-5.0) g/dL Microbiology - Last 24 Hours (Table) 06/14/21 00:27 Urine Culture - Final Urine,Voided 06/14/21 13:00 Gram Stain - Preliminary Hand - Right Wound Culture - Preliminary 06/14/21 00:50 Blood Culture - Preliminary Blood No Growth after 24 hours 06/14/21 00:27 Blood Culture - Preliminary Blood No Growth after 24 hours 06/14/21 13:00 Anaerobic Culture - Preliminary Hand - Right Assessment and Plan Plan: Assessment: 1. Acute kidney injury secondary to ATN secondary to infection. Creatinine peaked at 2.1 this admission and is down to 1.02 today. Unknown baseline renal function. 3+ proteinuria on UA. No hydronephrosis noted on kidney ultrasound. 2. Right hand infection on antibiotics. 3. Hypovolemic hyponatremia improved with IV hydration. 4. Metabolic acidosis secondary to acute kidney injury and IV fluids. Plan: Repeat UA and UPC pending. Hep-Lock IV fluids. Avoid nephrotoxins. Continue to monitor renal function and urine output. Follow-up cultures.
--- NOTE | 2021-06-15 11:14 | P.CONS ---
History of Present Illness - Reason for Consult Consult date: 06/14/21 right hand abscess Requesting physician: Simon Clarke - Chief Complaint right hand pain and swelling x 3 days - History of Present Illness History of present illness : Patient is 45-year-old male presenting to the hospital early this morning for evaluation of progressive pain swelling and redness to the right hand apparently the patient did have a trauma to the right hand middle finger on Wednesday the patient noticed there was a cut he put some Band-Aid on it however the next few days finger become more swollen red and painful patient complaining of pain to be throbbing intensity is almost a level of 10 with severity when he presented to hospital with associated swelling and redness patient on presentation to the hospital did have a fever of 101.2 F the patient was tachycardic patient did have white count 19 point 7 repeat this morning is 17,000 kidney function was slightly elevated huerta PCR was negative patient did have a x-rays of the hand soft tissue swelling no fracture no signs of osteomyelitis patient has been evaluated by orthopedics and was taken to the OR this afternoon for description noticed to have right dorsal middle finger a bscess status post irrigation and debridement of the right middle finger tendon sheath cultures has been obtained patient is currently treated with vancomycin infectious disease was consulted for further management of antibiotic therapy Review of system: CONSTITUTIONAL: Positive for weakness along with the fever. EYES: No complaint. ENT: No complaint. RESPIRATORY: No complaint. CARDIOVASCULAR: No complaint. GENITOURINARY: No complaint. GASTROINTESTINAL: No complaint. MUSCULOSKELETAL: As per history of present illness. INTEGUMENTARY: As per history of present illness. PSYCHOLOGIC: No complaint. ENDOCRINE: No complaint. NEUROLOGIC: No complaint. Past medical history : Reviewed, documented below Past surgical history : Reviewed, documented below Social history: Reviewed, documented below Medications: Reviewed, as documented below EXAMINATION: Vital sigans= Reviewed and documented below GENERAL DESCRIPTION: Middle-aged male lying in bed, no distress. No tachypnea or accessory muscle of respiration use. HEENT: Shows Pallor , no scleral icterus. Oral mucous membrane is dry. NECK: Trachea central, no thyromegaly. LUNGS: Unlabored breathing. Clear to auscultation anteriorly. No wheeze or crackle. HEART: S1, S2, regular rate and rhythm. ABDOMEN: Soft, no tenderness , guarding or rigidity EXTREMITIES: Right hand is currently dressed in OR dressing. SKIN: No rash, no masses palpable. NEUROLOGICAL: The patient is awake, alert, oriented x3, mood and affect normal. LABS AND RADIOLOGY: Reviewed results see below Assessment : 1-patient presented to hospital with sepsis in this patient who did have a fever tachycardia elevated white count secondary to the right middle finger abscess in this patient was status post I&D of the abscess will need to cover for the gram-positive skin avi to be the likely pathogen 2-patient with renal insufficiency and risk of nephrotoxicity Plan: 1-vancomycin pharmacy to dose with a target trough of 15 while watching kidney function and Vanco trough closely. 2-gentle IV fluid 3-discharge antibiotic on the basis of culture and clinical response We will follow on clinical condition and cultures to further adjust medication if needed Thank you for this consultation we will follow the patient along with you Past Medical History Past Medical History: No Reported History History of Any Multi-Drug Resistant Organisms: None Reported Past Surgical History: No Surgical Hx Reported Past Psychological History: No Psychological Hx Reported Smoking Status: Never smoker Past Alcohol Use History: None Reported Past Drug Use History: None Reported - Past Family History Family Family Medical History: No Reported History Medications and Allergies Home Medications Medication Instructions Recorded Confirmed Type Acetaminophen Tab [Tylenol Tab] 500 mg PO Q6H PRN 06/14/21 06/14/21 History Bimatoprost [Lumigan .01% Ophth 1 drop RIGHT EYE HS 06/14/21 06/14/21 History Soln] Allergies Allergy/AdvReac Type Severity Reaction Status Date / Time No Known Allergies Allergy Verified 06/14/21 07:56 Physical Exam Vitals: Vital Signs Temp Pulse Pulse Resp BP BP Pulse Ox 06/14/21 13:45 106 H 14 140/75 93 L 06/14/21 13:30 106 H 14 145/76 06/14/21 13:21 97.0 F L 99 16 112/67 99 06/14/21 09:26 98.8 F 73 18 133/93 98 06/14/21 04:51 97.6 F 81 18 123/80 96 06/14/21 00:00 101.2 F H 06/13/21 20:30 99 F 106 H 22 158/97 97 Intake and Output 06/13/21 06/14/21 06/14/21 22:59 06:59 14:59 Intake Total 900 Output Total 5 Balance 895 Intake: IV 900 Output: Estimated Blood Loss 5 Other: Weight 68.039 kg Results CBC & Chem 7: 06/14/21 16:24 06/15/21 06:37 Labs: Abnormal Lab Results - Last 24 Hours (Table) 06/14/21 06/14/21 06/14/21 Range/Units 00:27 00:27 00:27 WBC 19.7 H (3.8-10.6) k/uL Neutrophils # 17.3 H (1.3-7.7) k/uL Lymphocytes # 0.7 L (1.0-4.8) k/uL Monocytes # 1.2 H (0-1.0) k/uL ESR (0-15) mm/hr Sodium 129 L (137-145) mmol/L Chloride 94 L (98-107) mmol/L Carbon Dioxide 21 L (22-30) mmol/L BUN 27 H (9-20) mg/dL Creatinine 1.80 H (0.66-1.25) mg/dL Glucose 200 H (74-99) mg/dL Calcium (8.4-10.2) mg/dL C-Reactive Protein (<1.0) mg/dL Urine Protein 3+ H (Negative) Urine Glucose (UA) Trace H (Negative) Urine Blood Trace H (Negative) Urine WBC 30 H (0-5) /hpf Amorphous Sediment Rare H (None) /hpf Hyaline Casts 131 H (0-2) /lpf Urine Mucus Rare H (None) /hpf 06/14/21 06/14/21 06/14/21 Range/Units 05:36 05:36 05:36 WBC (3.8-10.6) k/uL Neutrophils # (1.3-7.7) k/uL Lymphocytes # (1.0-4.8) k/uL Monocytes # (0-1.0) k/uL ESR 80 H (0-15) mm/hr Sodium 133 L (137-145) mmol/L Chloride (98-107) mmol/L Carbon Dioxide (22-30) mmol/L BUN 27 H (9-20) mg/dL Creatinine 2.10 H (0.66-1.25) mg/dL Glucose 119 H (74-99) mg/dL Calcium 8.0 L (8.4-10.2) mg/dL C-Reactive Protein 32.3 H (<1.0) mg/dL Urine Protein (Negative) Urine Glucose (UA) (Negative) Urine Blood (Negative) Urine WBC (0-5) /hpf Amorphous Sediment (None) /hpf Hyaline Casts (0-2) /lpf Urine Mucus (None) /hpf Microbiology - Last 24 Hours (Table) 06/14/21 00:27 Urine Culture - Preliminary Urine,Voided
[2021-06-15 12:14] LABS: Glucose,Whole Blood 116 mg/dL (75-99)
[2021-06-15] MEDS: VANCOMYCIN 1,250 MG in SODIUM CHLORIDE 0.9% 250 ML IVPB SCH ×2 (13:30→22:55)
[2021-06-15] MEDS: HYDROcodone/APAP 5-325MG 1 EACH TAB PO PRN (15:41)
--- NOTE | 2021-06-15 16:56 | P.PN ---
Subjective Patient is doing well today. Right hand is covered with clean dressing and Jaspreet wrap. Patient does not have any complaints. Objective - Vital Signs Vital signs: Vital Signs Temp 99.8 F H 06/15/21 15:36 Pulse 96 06/15/21 15:36 Resp 16 06/15/21 15:36 BP 147/92 06/15/21 15:36 Pulse Ox 97 06/15/21 15:36 Intake & Output 06/14/21 06/15/21 06/15/21 18:59 06:59 18:59 Intake Total 1020 780 Output Total 6 Balance 1014 780 Weight 68.039 kg Intake: IV 900 Oral 120 780 Output: Urine 1 Estimated Blood Loss 5 Other: # Voids 1 3 - Exam General: The patient is awake and alert, in no distress Eye: there is normal conjunctiva bilaterally. Neck: The neck is supple, there is no JVD. Cardiovascular: Normal S1-S2, no S3-S4, no murmurs. Respiratory: Lungs clear to auscultation bilaterally Gastrointestinal: Abdomen is soft, nontender Musculoskeletal: There is no pedal edema. Neurological:. Speech is normal. Skin: Skin is warm and dry - Labs CBC & Chem 7: 06/14/21 16:24 06/15/21 06:37 Labs: Abnormal Lab Results - Last 24 Hours (Table) 06/14/21 06/15/21 06/15/21 Range/Units 16:24 06:37 07:22 WBC 17.0 H (3.8-10.6) k/uL RBC 3.92 L (4.30-5.90) m/uL Hgb 12.9 L (13.0-17.5) gm/dL MCV 101.9 H (80.0-100.0) fL Neutrophils # 15.3 H (1.3-7.7) k/uL Lymphocytes # 0.5 L (1.0-4.8) k/uL ESR 85 H (0-15) mm/Hr Sodium 134 L (137-145) mmol/L Carbon Dioxide 21 L (22-30) mmol/L Glucose 113 H (74-99) mg/dL POC Glucose (mg/dL) (75-99) mg/dL Calcium 8.2 L (8.4-10.2) mg/dL C-Reactive Protein 31.8 H (<1.0) mg/dL Total Protein 5.4 L (6.3-8.2) g/dL Albumin 2.7 L (3.5-5.0) g/dL 06/15/21 Range/Units 12:13 WBC (3.8-10.6) k/uL RBC (4.30-5.90) m/uL Hgb (13.0-17.5) gm/dL MCV (80.0-100.0) fL Neutrophils # (1.3-7.7) k/uL Lymphocytes # (1.0-4.8) k/uL ESR (0-15) mm/Hr Sodium (137-145) mmol/L Carbon Dioxide (22-30) mmol/L Glucose (74-99) mg/dL POC Glucose (mg/dL) 116 H (75-99) mg/dL Calcium (8.4-10.2) mg/dL C-Reactive Protein (<1.0) mg/dL Total Protein (6.3-8.2) g/dL Albumin (3.5-5.0) g/dL Microbiology - Last 24 Hours (Table) 06/14/21 00:27 Urine Culture - Final Urine,Voided 06/14/21 13:00 Gram Stain - Preliminary Hand - Right Wound Culture - Preliminary 06/14/21 00:50 Blood Culture - Preliminary Blood No Growth after 24 hours 06/14/21 00:27 Blood Culture - Preliminary Blood No Growth after 24 hours 06/14/21 13:00 Anaerobic Culture - Preliminary Hand - Right Assessment and Plan Assessment: 45-year-old male with no significant past medical history that presented to the ER with worsening right hand swelling and pain In the ED he was evaluated suspected to have sepsis with infection of the right hand swelling is mainly over the middle finger imaging showed no acute fractures Assessment and Plan Assessment: Sepsis secondary of right hand cellulitis Status post irrigation and debridement of right middle finger flexor tendon and dorsal extensor tendon sheath Antibiotics managed by infectious disease awaiting final cultures Acute kidney injury Hyponatremia Resolved with IV fluid hydration Patient is full code DVT prophylaxis mechanical
[2021-06-15 17:43] LABS: Glucose,Whole Blood 109 mg/dL (75-99)
[2021-06-15 19:02] LABS: Appearance,Urine Clear (Clear); Bilirubin,Urine Negative (Negative); Blood,Urine Negative (Negative); Color,Urine Yellow; Glucose,Urine (UA) Negative (Negative); Ketones,Urine Negative (Negative); Leukocyte Esterase,Urine Negative (Negative); Nitrite,Urine Negative (Negative); PH, Urine 5.5 (5.0-8.0); Protein,Urine Negative (Negative); Urobilinogen,Urine <2.0 mg/dL (<2.0)
[2021-06-15 20:00] LABS: Creatinine,Urine Random 58.6 mg/dL; Protein/Creatinine Ratio,Urine 0.375
[2021-06-15 20:15] LABS: Glucose,Whole Blood 129 mg/dL (75-99)
[2021-06-15] MEDS: ACETAMINOPHEN TAB 325 MG TAB PO PRN (22:59)
--- NOTE | 2021-06-16 03:07 | PN ---
PROGRESS NOTE DATE OF SERVICE: 06/15/2021 REASON FOR FOLLOWUP: Right middle finger abscess and tenosynovitis. INTERVAL HISTORY: The patient are afebrile. The patient's pain to the right middle finger is currently controlled. No chest pain, shortness of breath or cough. No abdominal pain, no diarrhea. PHYSICAL EXAMINATION: Blood pressure 158/82 with a pulse of 72, temperature 99.3. He is 98% on room air. General description is a middle-aged male up in the room in no distress. Respiratory system: Unlabored breathing, clear to auscultation anteriorly. Heart S1, S2. Regular rate and rhythm. Abdomen soft, no tenderness. Right hand is currently dressed. No obvious drainage on the dressing. LAB: Sedimentation rate is 85, creatinine 1.02, CRP is 31.8. Cultures are currently pending. DIAGNOSTIC IMPRESSION AND PLAN: Patient with right middle finger abscess and tenosynovitis status post I and D. Cultures are currently pending. Patient is covered with vancomycin. Discharge antibiotic based on culture report and may benefit from IV antibiotic on discharge. Will discuss with the registered nurse hh case manager to check his coverage. MMODL / IJN: [id number] /
[2021-06-16] MEDS: VANCOMYCIN 1,250 MG in SODIUM CHLORIDE 0.9% 250 ML IVPB SCH (05:42)
[2021-06-16] MEDS: HYDROcodone/APAP 5-325MG 1 EACH TAB PO PRN ×2 (05:51→21:26)
[2021-06-16 06:05] LABS: African American GFR (CKD) >90 (>60 ml/min/1.73 sqM); Anion Gap 7 mmol/L; Blood Urea Nitrogen 11 mg/dL (9-20); Calcium 8.9 mg/dL (8.4-10.2); Carbon Dioxide 25 mmol/L (22-30); Chloride 103 mmol/L (98-107); Glucose 128 mg/dL (74-99); Magnesium 1.7 mg/dL (1.6-2.3); Non-African American GFR(CKD) >90 (>60 ml/min/1.73 sqM); Potassium 3.8 mmol/L (3.5-5.1); Sodium 135 mmol/L (137-145)
[2021-06-16 07:43] LABS: Glucose,Whole Blood 123 mg/dL (75-99)
[2021-06-16 08:19] LABS: Basophils # (A) 0.1 k/uL (0-0.2); Basophils % (A) 0 %; Eosinophils # (A) 0.1 k/uL (0-0.7); Eosinophils % (A) 1 %; HCT 38.5 % (39.0-53.0); HGB 12.7 gm/dL (13.0-17.5); Lymphocytes # (A) 0.9 k/uL (1.0-4.8); Lymphocytes % (A) 8 %; MCH 33.2 pg (25.0-35.0); MCHC 32.9 g/dL (31.0-37.0); MCV 100.8 fL (80.0-100.0); Mean Platelet Volume 8.8; Monocytes # (A) 0.8 k/uL (0-1.0); Monocytes % (A) 6 %; Neutrophils # (A) 10.3 k/uL (1.3-7.7); Neutrophils % (A) 83 %; Platelet Count 264 k/uL (150-450); RBC 3.82 m/uL (4.30-5.90); RDW 12.4 % (11.5-15.5); WBC 12.4 k/uL (3.8-10.6)
--- NOTE | 2021-06-16 09:41 | P.PN ---
Subjective Patient is seen in follow-up for acute kidney injury. Renal function improved. Good urine output. No vomiting or diarrhea. No active complaints. Vital signs are stable. General: The patient appeared well nourished and normally developed. HEENT: Head exam is unremarkable. LUNGS: Breath sounds decreased. HEART: Rate and Rhythm are regular. ABDOMEN: Soft, no distention. EXTREMITITES: No edema. Objective - Vital Signs Vital signs: Vital Signs Temp 97.8 F 06/16/21 07:26 Pulse 74 06/16/21 07:26 Resp 18 06/16/21 07:26 BP 185/95 06/16/21 07:26 Pulse Ox 96 06/16/21 07:26 Intake & Output 06/15/21 06/16/21 06/16/21 18:59 06:59 18:59 Intake Total 120 Balance 120 Intake: Oral 120 Other: # Voids 3 1 0 - Labs CBC & Chem 7: 06/16/21 08:05 06/16/21 05:14 Labs: Abnormal Lab Results - Last 24 Hours (Table) 06/15/21 06/15/21 06/15/21 Range/Units 07:22 12:13 17:42 WBC (3.8-10.6) k/uL RBC (4.30-5.90) m/uL Hgb (13.0-17.5) gm/dL Hct (39.0-53.0) % MCV (80.0-100.0) fL Neutrophils # (1.3-7.7) k/uL Lymphocytes # (1.0-4.8) k/uL ESR 85 H (0-15) mm/Hr Sodium (137-145) mmol/L Glucose (74-99) mg/dL POC Glucose (mg/dL) 116 H 109 H (75-99) mg/dL 06/15/21 06/16/21 06/16/21 Range/Units 20:14 05:14 07:34 WBC (3.8-10.6) k/uL RBC (4.30-5.90) m/uL Hgb (13.0-17.5) gm/dL Hct (39.0-53.0) % MCV (80.0-100.0) fL Neutrophils # (1.3-7.7) k/uL Lymphocytes # (1.0-4.8) k/uL ESR (0-15) mm/Hr Sodium 135 L (137-145) mmol/L Glucose 128 H (74-99) mg/dL POC Glucose (mg/dL) 129 H 123 H (75-99) mg/dL 06/16/21 Range/Units 08:05 WBC 12.4 H (3.8-10.6) k/uL RBC 3.82 L (4.30-5.90) m/uL Hgb 12.7 L (13.0-17.5) gm/dL Hct 38.5 L (39.0-53.0) % MCV 100.8 H (80.0-100.0) fL Neutrophils # 10.3 H (1.3-7.7) k/uL Lymphocytes # 0.9 L (1.0-4.8) k/uL ESR (0-15) mm/Hr Sodium (137-145) mmol/L Glucose (74-99) mg/dL POC Glucose (mg/dL) (75-99) mg/dL Microbiology - Last 24 Hours (Table) 06/14/21 00:50 Blood Culture - Preliminary Blood No Growth after 48 hours 06/14/21 00:27 Blood Culture - Preliminary Blood No Growth after 48 hours 06/14/21 00:27 Urine Culture - Final Urine,Voided 06/14/21 13:00 Gram Stain - Preliminary Hand - Right Wound Culture - Preliminary Assessment and Plan Plan: Assessment: 1. Acute kidney injury secondary to ATN secondary to infection. Resolved. Creatinine peaked at 2.1 this admission and is down to 0.74 today. 3+ proteinuria on UA - repeat UA benign. No hydronephrosis noted on kidney ultrasound. 2. Right hand infection on antibiotics. 3. Hypovolemic hyponatremia improved with IV hydration. 4. Metabolic acidosis secondary to acute kidney injury and IV fluids. Improved. Plan: Remains off IV fluids. Oral intake is good. I will sign off. Please call with any questions or concerns.
--- NOTE | 2021-06-16 11:22 | P.PN ---
Subjective Progress Note Date: 06/16/21 This patient is a 45-year-old male who is status-post irrigation and debridement of the right middle finger flexor tendon sheath and dorsal extensor tendon sheath on 06/14/[address] Clarke. Today's post-operative day #2. Patient is seen and examined bedside. His hand pain has continues to improve postoperatively. He states he feels well this morning. He denies fevers, chills, nausea, vomiting. Vital signs stable. Objective - Vital Signs Vital signs: Vital Signs Temp 97.8 F 06/16/21 07:26 Pulse 74 06/16/21 07:26 Resp 18 06/16/21 07:26 BP 185/95 06/16/21 07:26 Pulse Ox 96 06/16/21 07:26 Intake & Output 06/15/21 06/16/21 06/16/21 18:59 06:59 18:59 Intake Total 120 Balance 120 Intake: Oral 120 Other: # Voids 3 1 0 - Exam On examination, the patient is sitting in bed in no apparent distress. He is alert and oriented 3. inspection of the right hand, there is a clean dressing intact. The dressing is taken down and reveals healing incisions of the volar and dorsal middle finger with intact nylon sutures. There is minimal surrou nding erythema. Mild swelling. No active drainage, no pus. There is minimal pain with palpation of the dorsal and volar hand. No pain to palpation of the wrist, forearm, elbow. sensation is intact to light touch in the distal middle finger. The right middle finger is warm and well perfused with brisk capillary refill distally. - Labs CBC & Chem 7: 06/16/21 08:05 06/16/21 05:14 Labs: Abnormal Lab Results - Last 24 Hours (Table) 06/15/21 06/15/21 06/15/21 Range/Units 07:22 12:13 17:42 WBC (3.8-10.6) k/uL RBC (4.30-5.90) m/uL Hgb (13.0-17.5) gm/dL Hct (39.0-53.0) % MCV (80.0-100.0) fL Neutrophils # (1.3-7.7) k/uL Lymphocytes # (1.0-4.8) k/uL ESR 85 H (0-15) mm/Hr Sodium (137-145) mmol/L Glucose (74-99) mg/dL POC Glucose (mg/dL) 116 H 109 H (75-99) mg/dL 06/15/21 06/16/21 06/16/21 Range/Units 20:14 05:14 07:34 WBC (3.8-10.6) k/uL RBC (4.30-5.90) m/uL Hgb (13.0-17.5) gm/dL Hct (39.0-53.0) % MCV (80.0-100.0) fL Neutrophils # (1.3-7.7) k/uL Lymphocytes # (1.0-4.8) k/uL ESR (0-15) mm/Hr Sodium 135 L (137-145) mmol/L Glucose 128 H (74-99) mg/dL POC Glucose (mg/dL) 129 H 123 H (75-99) mg/dL 06/16/21 Range/Units 08:05 WBC 12.4 H (3.8-10.6) k/uL RBC 3.82 L (4.30-5.90) m/uL Hgb 12.7 L (13.0-17.5) gm/dL Hct 38.5 L (39.0-53.0) % MCV 100.8 H (80.0-100.0) fL Neutrophils # 10.3 H (1.3-7.7) k/uL Lymphocytes # 0.9 L (1.0-4.8) k/uL ESR (0-15) mm/Hr Sodium (137-145) mmol/L Glucose (74-99) mg/dL POC Glucose (mg/dL) (75-99) mg/dL Microbiology - Last 24 Hours (Table) 06/14/21 13:00 Gram Stain - Final Hand - Right Wound Culture - Final Beta Hemolytic Strep Group G 06/14/21 00:50 Blood Culture - Preliminary Blood No Growth after 48 hours 06/14/21 00:27 Blood Culture - Preliminary Blood No Growth after 48 hours 06/14/21 00:27 Urine Culture - Final Urine,Voided Assessment and Plan Assessment: Right middle finger purulent flexor tenosynovitis and right dorsal middle finger abscess status-post irrigation and debridement on 06/14/21. Post-operative day #2. Plan: -Operative dressings were removed bedside today, and a new dressing was applied. We have no plans for additional surgery at this time. - Patient should rest, elevate right hand. He should be non-weight bearing with the right hand. - Continue antibiotics under the discretion of infectious disease. Intra- operative cultures showing beta hemolytic strep. - Medical management per internal medicine, infectious disease, nephrology. - Patient is ok for discharge from orthopedic standpoint. Recommended follow-up in the office on Wednesday06/20/[address] Nagel for further evaluati on.
[2021-06-16 12:24] LABS: Glucose,Whole Blood 90 mg/dL (75-99)
--- NOTE | 2021-06-16 12:55 | P.PN ---
Subjective Progress Note Date: 06/16/21 Patient is doing well today. Right hand is covered with clean dressing and Jaspreet wrap. Patient does not have any complaints. Objective - Vital Signs Vital signs: Vital Signs Temp 97.8 F 06/16/21 07:26 Pulse 74 06/16/21 07:26 Resp 18 06/16/21 07:26 BP 185/95 06/16/21 07:26 Pulse Ox 96 06/16/21 07:26 Intake & Output 06/15/21 06/16/21 06/16/21 18:59 06:59 18:59 Intake Total 120 Balance 120 Intake: Oral 120 Other: # Voids 3 1 0 - Exam General: The patient is awake and alert, in no distress Eye: there is normal conjunctiva bilaterally. Neck: The neck is supple, there is no JVD. Cardiovascular: Normal S1-S2, no S3-S4, no murmurs. Respiratory: Lungs clear to auscultation bilaterally Gastrointestinal: Abdomen is soft, nontender Musculoskeletal: There is no pedal edema. Neurological:. Speech is normal. Skin: Skin is warm and dry - Labs CBC & Chem 7: 06/16/21 08:05 06/16/21 05:14 Labs: Abnormal Lab Results - Last 24 Hours (Table) 06/15/21 06/15/21 06/15/21 Range/Units 07:22 17:42 20:14 WBC (3.8-10.6) k/uL RBC (4.30-5.90) m/uL Hgb (13.0-17.5) gm/dL Hct (39.0-53.0) % MCV (80.0-100.0) fL Neutrophils # (1.3-7.7) k/uL Lymphocytes # (1.0-4.8) k/uL ESR 85 H (0-15) mm/Hr Sodium (137-145) mmol/L Glucose (74-99) mg/dL POC Glucose (mg/dL) 109 H 129 H (75-99) mg/dL 06/16/21 06/16/21 06/16/21 Range/Units 05:14 07:34 08:05 WBC 12.4 H (3.8-10.6) k/uL RBC 3.82 L (4.30-5.90) m/uL Hgb 12.7 L (13.0-17.5) gm/dL Hct 38.5 L (39.0-53.0) % MCV 100.8 H (80.0-100.0) fL Neutrophils # 10.3 H (1.3-7.7) k/uL Lymphocytes # 0.9 L (1.0-4.8) k/uL ESR (0-15) mm/Hr Sodium 135 L (137-145) mmol/L Glucose 128 H (74-99) mg/dL POC Glucose (mg/dL) 123 H (75-99) mg/dL Microbiology - Last 24 Hours (Table) 06/14/21 13:00 Gram Stain - Final Hand - Right Wound Culture - Final Beta Hemolytic Strep Group G 06/14/21 00:50 Blood Culture - Preliminary Blood No Growth after 48 hours 06/14/21 00:27 Blood Culture - Preliminary Blood No Growth after 48 hours Assessment and Plan Assessment: 45-year-old male with no significant past medical history that presented to the ER with worsening right hand swelling and pain In the ED he was evaluated suspected to have sepsis with infection of the right hand swelling is mainly over the middle finger imaging showed no acute fractures Assessment and Plan Assessment: Sepsis secondary of right hand cellulitis Status post irrigation and debridement of right middle finger flexor tendon and dorsal extensor tendon sheath Antibiotics managed by infectious disease awaiting final cultures Acute kidney injury Hyponatremia Resolved with IV fluid hydration Patient is full code DVT prophylaxis mechanical Discharge planning tomorrow waiting final recommendations regarding antibiotic by ID (oral versus IV)
[2021-06-16 17:56] LABS: Glucose,Whole Blood 114 mg/dL (75-99)
[2021-06-16 21:08] LABS: Glucose,Whole Blood 111 mg/dL (75-99)
[2021-06-17] MEDS: HYDROcodone/APAP 5-325MG 1 EACH TAB PO PRN ×2 (04:50→14:42)
[2021-06-17] MEDS ORDERED: VANCOMYCIN TROUGH DUE 1 EACH MISC MISCELLANE ONE (05:00)
[2021-06-17 08:13] VITALS: BP 162/78; PULSE 59; RESP 18; TEMP 97.8
[2021-06-17 08:15] LABS: Glucose,Whole Blood 117 mg/dL (75-99)
--- NOTE | 2021-06-17 11:49 | P.PN ---
Subjective Progress Note Date: 06/17/21 This patient is a 45-year-old male who is status-post irrigation and debridement of the right middle finger flexor tendon sheath and dorsal extensor tendon sheath on 06/14/[address] Clarke. Today's post-operative day #3. Patient is seen and examined bedside. He is having no right hand pain today. Patient feels well. He is tolerating his diet well. Patient denies fevers, chills. Objective - Vital Signs Vital signs: Vital Signs Temp 97.8 F 06/17/21 08:12 Pulse 59 L 06/17/21 08:12 Resp 18 06/17/21 08:12 BP 162/78 06/17/21 08:12 Pulse Ox 95 06/17/21 08:12 Intake & Output 06/16/21 06/17/21 06/17/21 18:59 06:59 18:59 Intake Total 600 200 Balance 600 200 Intake: Intake, IV Titration 200 Amount ceFAZolin 2 gm In Sodium 200 Chloride 0.9% 50 ml @ 100 mls/hr IVPB Q8H [facility] Rx#: [id number] Oral 600 Other: Voiding Method Toilet Toilet Urinal Urinal # Voids 1 - Exam On examination, the patient is sitting in bed in no apparent distress. He is alert and oriented 3. On inspection of the right hand, there is a bulky dressing in place. There is no pain with palpation of the elbow, forearm, wr ist. The visible portion of the distal middle finger is warm and well-perfused, with brisk capillary refill. Sensation is intact to light touch of the distal right middle finger. - Labs CBC & Chem 7: 06/16/21 08:05 06/16/21 05:14 Labs: Abnormal Lab Results - Last 24 Hours (Table) 06/16/21 06/16/21 06/17/21 Range/Units 17:27 21:06 08:10 POC Glucose (mg/dL) 114 H 111 H 117 H (75-99) mg/dL Microbiology - Last 24 Hours (Table) 06/14/21 00:50 Blood Culture - Preliminary Blood No Growth after 72 hours 06/14/21 00:27 Blood Culture - Preliminary Blood No Growth after 72 hours 06/14/21 13:00 Anaerobic Culture - Preliminary Hand - Right 06/14/21 13:00 Gram Stain - Final Hand - Right Wound Culture - Final Beta Hemolytic Strep Group G Assessment and Plan Assessment: Right middle finger purulent flexor tenosynovitis and right dorsal middle finger abscess status-post irrigation and debridement on 06/14/21. Post-operative day #3. Plan: - We have no plans for additional surgery at this time. - Patient should rest, elevate right hand. He should be non-weight bearing with the right hand. Keep dressing intact. - Continue antibiotics under the discretion of infectious disease. Intra- operative cultures showing beta hemolytic strep. - Medical management per internal medicine, infectious disease, nephrology. - Patient is ok for discharge from orthopedic standpoint. Recommended follow-up in the office on Wednesday06/20/[address] Nagel for further evaluation.
[2021-06-17 13:33] LABS: Glucose,Whole Blood 153 mg/dL (75-99)
--- NOTE | 2021-06-17 14:36 | PN ---
PROGRESS NOTE DATE OF SERVICE: 06/17/2021 REASON FOR FOLLOWUP: Right middle finger tenosynovitis. INTERVAL HISTORY: The patient is afebrile. The patient is breathing comfortably. The patient denies having any chest pain, shortness of breath or cough. No abdominal pain or any worsening pain to the right hand area. PHYSICAL EXAMINATION: Blood pressure is 162/78 with a pulse of 59, temperature 97.8. He is 95% on room air. General description is a middle-aged male up in the bed in no distress. RESPIRATORY SYSTEM: Unlabored breathing. Clear to auscultation anteriorly. HEART: S1, S2. Regular rate and rhythm. ABDOMEN: Soft. No tenderness. Right middle finger still has significant swelling and redness. No drainage. LABS: Local culture with group C strep. DIAGNOSTIC IMPRESSION AND PLAN: Patient with right middle finger tenosynovitis with group C strep. In view of the infection, will benefit from IV Rocephin 2 grams daily for another 10 days, which can be done at the [facility], for which a midline will be placed. Continue supportive care. MMODL / IJN: [id number] /
--- NOTE | 2021-06-17 17:27 | P.DS ---
<Inocente Lacy - Last Filed: 06/17/21 17:18> Providers Expected date of discharge: 06/17/21 Hospital Course: Discharge Diagnosis: Sepsis secondary to right hand cellulitis Acute kidney injury, resolved Hyponatremia, resolved Hospital Course: Patient is a 45-year-old male with no significant past medical history that presented to the ER on 06/14/21 with worsening right hand swelling and pain. In the ED he was evaluated suspected to have sepsis with infection of the right hand swelling is mainly over the middle finger imaging showed no acute fractures. He was diagnosed with right hand cellulitis and acute kidney injury resulting in admission under our services with consultation to infectious disease, nephrology and orthopedic surgery. X-ray right hand was completed revealing soft tissue swelling with no evidence of fracture or osteomyelitis. Patient underwent right middle finger irrigation and debridement on 06/14/21 and treated with IV antibiotics. Acute kidney injury resolved with treatment of IV fluids. Blood cultures negative showing no growth after 72 hours. Urine culture negative. Wound culture positive for group G beta-hemolytic strep. Patient's cellulitis improving and he has stable for discharge home. [facility]. Patient to continue with Rocephin 2 g jadiel ly 10 days. Physical examination: Patient seen and examined at bedside. He denies having any complaints or needs at this time. Reports pain in right hand is controlled. Dressing is clean dry and intact. Movement and sensation of right hand intact. Vital signs reviewed and stable. General: Nontoxic, no distress and appears stated age. Derm: Skin warm and dry, normal coloration for ethnicity. Dressing clean, dry, and intact to right hand with no signs of bleeding or drainage. Head: Atraumatic, normocephalic and symmetric. Eyes: EOMs intact, no lid lag, and anicteric sclera Mouth: no lip lesions, mucus membranes moist Cardiovascular: regular rate and rhythm with normal S1S2, no murmur, positive posterior tibial pulses bilaterally, and cap refill < 2 seconds. Lungs: Respirations even, regular, and unlabored on room air. Lungs CTA bilaterally, no rhonchi, no rales, no wheezing, and no accessory muscle usage. Abdominal: soft, nontender to palpation, no guarding, no appreciable organomegaly Ext: ROM intact. No gross muscle atrophy, no edema, no contractures Neuro: Speech clear, face symmetrical and CN II-XII grossly intact with no noted focal neuro deficits Psych: Alert and oriented to person, place, time, and situation. Appropriate and pleasant affect. A total of 45 minutes of time were spent preparing this complex discharge summary. Patient Condition at Discharge: Stable Plan - Discharge Summary Discharge Rx Participant: No New Discharge Prescriptions: New HYDROcodone/APAP 5-325MG [[place] 5-325] 2 each PO Q6HR PRN 3 Days #12 tab PRN Reason: Pain Scale 6 To 10 Continue Acetaminophen Tab [Tylenol] 500 mg PO Q6H PRN PRN Reason: Pain Or Fever > 100.5 Bimatoprost [[place] .01% Ophth Soln] 1 drop RIGHT EYE HS Discharge Medication List Acetaminophen Tab [Tylenol] 500 mg PO Q6H PRN 06/14/21 [History] Bimatoprost [Lumigan .01% Ophth Soln] 1 drop RIGHT EYE HS 06/14/21 [History] HYDROcodone/APAP 5-325MG [[place] 5-325] 2 each PO Q6HR PRN 3 Days #12 tab 06/17/21 [Rx] Follow up Appointment(s)/Referral(s): Beena Nagel DO [Doctor of Osteopathic Medicine] - 06/20/21 None,Stated [Primary Care Provider] - 1-2 days Joe Jackson MD [STAFF PHYSICIAN] - 1 Week Activity/Diet/Wound Care/Special Instructions: [facility] appointment is June at 0945. Additional appointments will be made at that time. Keep dressing intact until follow-up appointment with Dr. Nagel at [facility]. Discharge Disposition: HOME SELF-CARE <Lorie Sumner - Last Filed: 06/17/21 18:34> Providers Date of admission: 06/14/21 01:28 Attending physician: Luzmaria Patten MD Consults: 06/14/21 01:42 Consult Physician Routine Consulting Provider: Simon Clarke Consult Reason/Comments: Right hand infection Do you want consulting provider notified?: Yes 06/14/21 09:07 Consult Physician Routine Consulting Provider: Gabbi Mchugh Consult Reason/Comments: RONNY Do you want consulting provider notified?: Yes 06/14/21 13:23 Consult Physician Routine Consulting Provider: Joe Jackson Consult Reason/Comments: right hand pyogenic flexor tenosynovitis Do you want consulting provider notified?: Yes Primary care physician: Stated None Hospital Course: I reviewed the documentation as provided by the DOMINICK above, who is the original author of this note. I agree with the documented assessment and plan, with the following changes: None
[2021-06-17] MEDS: ACETAMINOPHEN TAB 325 MG TAB PO PRN (18:03)
== END 2021-06-17 18:00 | disposition home or self-care (01) | DRG 853 ==
LOC: EC 19:16 → 5NMEDONC 06-14 01:28 → 6NMEDSUR 06-14 13:55
PROVIDERS: ADMIT Internal Medicine; ATTEND Internal Medicine
PROC: 0JBJ0ZZ Excision of Right Hand Subcutaneous Tissue and Fascia, Open Approach (ICD-10-PCS; 2021-06-14)
PROC: 05HF33Z Insertion of Infusion Device into Left Cephalic Vein, Percutaneous Approach (ICD-10-PCS; 2021-06-14)
PROC: 0LB70ZZ Excision of Right Hand Tendon, Open Approach (ICD-10-PCS; principal; 2021-06-14 12:30)
DX: A40.1 Sepsis due to streptococcus, group B (principal); N17.0 Acute kidney failure with tubular necrosis; L03.113 Cellulitis of right upper limb; E87.1 Hypo-osmolality and hyponatremia; L02.511 Cutaneous abscess of right hand; E87.2 Acidosis; M65.88 Other synovitis and tenosynovitis, other site; E86.1 Hypovolemia; Z20.822 Contact with and (suspected) exposure to COVID-19
CPT/HCPCS: 36410; 36415; 76770; 76937; 80048; 80053; 81001; 81003; 82550; 82570; 83036; 83605; 83735; 84156; 85025; 85610; 85652; 85730; 86140; 87040; 87070; 87075; 87086; 87205; 87635; 96361; 96374; 96375; 99284

== ENCOUNTER 2022-05-24 01:46 | Observation (INO) | payer OTHER ==
[2022-05-24 02:06] VITALS: RESP 16
--- NOTE | 2022-05-24 02:10 | ED ---
Alcohol HPI - General Chief Complaint: Alcohol Stated Complaint: Fall Time Seen by Provider: 05/24/22 02:09 Source: patient, EMS, RN notes reviewed, old records reviewed Mode of arrival: EMS Limitations: altered mental status - History of Present Illness Initial Comments: This is a a 38-year-old male to the emergency department for evaluation. Patient presents is a poor historian secondary to alcohol intake. Patient alert allegedly had a fall with head injury. Patient had injury to ER today. Patient is laceration above right eye unsure of events surrounding issue. 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 -: minute(s) Previous Visits for Alcohol Intoxication?: Yes Recent Trauma: Yes Associated Symptoms: denies other symptoms Treatments Prior to Arrival: cervical collar Chronic Alcohol Use: Yes - Related Data Home Medications Medication Instructions Recorded Confirmed Acetaminophen Tab [Tylenol] 500 mg PO Q6H PRN 06/14/21 06/14/21 Bimatoprost [Lumigan 0.01% Ophth 1 drop RIGHT EYE HS 06/14/21 06/14/21 Soln] Previous Rx's Medication Instructions Recorded HYDROcodone/APAP 5-325MG [[place] 2 each PO Q6HR PRN 3 Days #12 tab 06/17/21 5-325] Cephalexin [Keflex] 500 mg PO Q6HR 14 Days #56 cap 06/19/21 Allergies Allergy/AdvReac Type Severity Reaction Status Date / Time No Known Allergies Allergy Verified 06/14/21 07:56 Review of Systems ROS Statement: Those systems with pertinent positive or pertinent negative responses have been documented in the HPI. ROS Other: All systems not noted in ROS Statement are negative. Past Medical History Past Medical History: No Reported History History of Any Multi-Drug Resistant Organisms: None Reported Past Surgical History: No Surgical Hx Reported Past Psychological History: No Psychological Hx Reported Smoking Status: Current every day smoker Past Alcohol Use History: Daily Past Drug Use History: None Reported - Past Family History Family Family Medical History: No Reported History General Exam Limitations: altered mental status General appearance: alert, in no apparent distress Head exam: Present: normocephalic, normal inspection. Absent: atraumatic (Laceration above right eye) Eye exam: Present: normal appearance, PERRL, EOMI. Absent: scleral icterus, conjunctival injection, periorbital swelling ENT exam: Present: normal exam, mucous membranes moist Neck exam: Present: normal inspection. Absent: tenderness, meningismus, lymphadenopathy Respiratory exam: Present: normal lung sounds bilaterally. Absent: respiratory distress, wheezes, rales, rhonchi, stridor Cardiovascular Exam: Present: regular rate, normal rhythm, normal heart sounds. Absent: systolic murmur, diastolic murmur, rubs, gallop, clicks GI/Abdominal exam: Present: soft, normal bowel sounds. Absent: distended, tenderness, guarding, rebound, rigid Extremities exam: Present: normal inspection, full ROM, normal capillary refill. Absent: tenderness, pedal edema, joint swelling, calf tenderness Back exam: Present: normal inspection Neurological exam: Present: alert, oriented X3, CN II-XII intact Psychiatric exam: Present: normal affect, normal mood Skin exam: Present: warm, dry, intact, normal color. Absent: rash Course Vital Signs 05/24/22 02:01 Temperature 97.8 F Pulse Rate 109 H Respiratory 16 Rate Blood Pressure 153/108 O2 Sat by Pulse 97 Oximetry - Reevaluation(s) Reevaluation #1: 05/24/22 05:24 Medical records reviewed Reevaluation #2: 05/24/22 05:24 Patient symptoms improved here in the ER Reevaluation #3: 05/24/22 05:24 Patient informed of results secondary to alcohol intoxication cannot understand - Consultations Consultation #1: Focused out physicians who agree to admit this patient Procedures - Laceration Laceration #1 Consent Obtained: verbal consent Indication: laceration Site: face, eyelid Size (cm): 3 Description: linear Depth: simple, single layer Anesthetic Used: lidocaine 1%, with epi Pre-repair: wound explored Size of Sutures: 4-0 Technique: simple, interrupted Patient Tolerated Procedure: well Medical Decision Making - Medical Decision Making 46 male DEL with right eye laceration eyebrow, repaired here in the ER alcohol intoxication. Patient does not have a safe drive home and was unarousable here in the ER secondary to alcohol level over 300. Patient be admitted for observation - Lab Data Result diagrams: 05/24/22 03:39 05/24/22 03:39 Lab Results 05/24/22 05/24/22 Range/Units 03:39 03:39 WBC 8.7 (3.8-10.6) k/uL RBC 4.87 (4.30-5.90) m/uL Hgb 16.9 (13.0-17.5) gm/dL Hct 48.9 (39.0-53.0) % MCV 100.4 H (80.0-100.0) fL MCH 34.6 (25.0-35.0) pg MCHC 34.5 (31.0-37.0) g/dL RDW 13.0 (11.5-15.5) % Plt Count 227 (150-450) k/uL MPV 8.0 Neutrophils % 68 % Lymphocytes % 20 % Monocytes % 6 % Eosinophils % 3 % Basophils % 1 % Neutrophils # 5.9 (1.3-7.7) k/uL Lymphocytes # 1.8 (1.0-4.8) k/uL Monocytes # 0.6 (0-1.0) k/uL Eosinophils # 0.3 (0-0.7) k/uL Basophils # 0.1 (0-0.2) k/uL Sodium 140 (137-145) mmol/L Potassium 4.0 (3.5-5.1) mmol/L Chloride 100 (98-107) mmol/L Carbon Dioxide 26 (22-30) mmol/L Anion Gap 14 mmol/L BUN 12 (9-20) mg/dL Creatinine 1.04 (0.66-1.25) mg/dL Est GFR (CKD-EPI)AfAm >90 (>60 ml/min/1.73 sqM) Est GFR (CKD-EPI)NonAf 85 (>60 ml/min/1.73 sqM) Glucose 149 H (74-99) mg/dL Calcium 8.9 (8.4-10.2) mg/dL Phosphorus 3.6 (2.5-4.5) mg/dL Magnesium 2.2 (1.6-2.3) mg/dL Total Bilirubin 0.3 (0.2-1.3) mg/dL AST 55 (17-59) U/L ALT 49 (4-49) U/L Alkaline Phosphatase 109 (38-126) U/L Total Protein 7.1 (6.3-8.2) g/dL Albumin 4.2 (3.5-5.0) g/dL Lipase 96 (23-300) U/L Serum Alcohol 306 H* mg/dL - Radiology Data Radiology results: report reviewed (CT brain C-spine and facial bones chest and pelvis x-ray are negative for traumatic injury), image reviewed Disposition Clinical Impression: Alcoholic intoxication, Fall, Laceration of right eyebrow Disposition: ADMITTED IP TO THIS HOSP Condition: Good Is patient prescribed a controlled substance at d/c from ED?: No Referrals: None,Stated [Primary Care Provider] - 1-2 days
[2022-05-24] MEDS ORDERED: SODIUM CHLORIDE 0.9% 1,000 ML IV STA (03:13)
[2022-05-24 04:16] LABS: ALT 49 U/L (4-49); AST 55 U/L (17-59); African American GFR (CKD) >90 (>60 ml/min/1.73 sqM); Albumin 4.2 g/dL (3.5-5.0); Alkaline Phosphatase 109 U/L (38-126); Anion Gap 14 mmol/L; Blood Urea Nitrogen 12 mg/dL (9-20); Calcium 8.9 mg/dL (8.4-10.2); Carbon Dioxide 26 mmol/L (22-30); Chloride 100 mmol/L (98-107); Glucose 149 mg/dL (74-99); Lipase 96 U/L (23-300); Magnesium 2.2 mg/dL (1.6-2.3); Non-African American GFR(CKD) 85 (>60 ml/min/1.73 sqM); Phosphorus 3.6 mg/dL (2.5-4.5); Sodium 140 mmol/L (137-145); Total Bilirubin 0.3 mg/dL (0.2-1.3); Total Protein 7.1 g/dL (6.3-8.2)
[2022-05-24 04:24] LABS: Basophils # (A) 0.1 k/uL (0-0.2); Basophils % (A) 1 %; Eosinophils # (A) 0.3 k/uL (0-0.7); Eosinophils % (A) 3 %; HCT 48.9 % (39.0-53.0); HGB 16.9 gm/dL (13.0-17.5); Lymphocytes # (A) 1.8 k/uL (1.0-4.8); Lymphocytes % (A) 20 %; MCH 34.6 pg (25.0-35.0); MCHC 34.5 g/dL (31.0-37.0); MCV 100.4 fL (80.0-100.0); Monocytes # (A) 0.6 k/uL (0-1.0); Monocytes % (A) 6 %; Neutrophils # (A) 5.9 k/uL (1.3-7.7); Neutrophils % (A) 68 %; Platelet Count 227 k/uL (150-450); RBC 4.87 m/uL (4.30-5.90); WBC 8.7 k/uL (3.8-10.6)
--- NOTE | 2022-05-24 04:36 | CT ---
EXAMINATION TYPE: CT facial bones wo con DATE OF EXAM: 05/24/2022 COMPARISON: None HISTORY: fall right eyebrow laceration CT DLP: 629.85 mGycm Automated exposure control for dose reduction was used. Images obtained from the bottom of the mandible to the top of the orbits without contrast. The mandibular ring is intact. Temporomandibular joints are intact. There is normal aeration of the m astoid sinuses. Zygomatic arches are intact. There is extensive opacification of the maxillary sinuse s. There is right-sided periorbital soft tissue swelling and frontal scalp soft tissue swelling. Nasal bone appears intact The orbital margins are intact. No evidence of orbital blowout fracture. No retro-orbital mass. The n darlene bone is intact. There is laceration deformity in the right supraorbital region. IMPRESSION: Soft tissue swelling and laceration deformity in the right supraorbital region. Maxillary and ethmoid sinusitis. No fracture seen.
[2022-05-24 04:37] LABS: Alcohol 306 mg/dL
--- NOTE | 2022-05-24 04:37 | XR ---
EXAMINATION TYPE: XR chest 1V DATE OF EXAM: 05/24/2022 COMPARISON: NONE HISTORY: Chest pain TECHNIQUE: Single view FINDINGS: Heart and mediastinum are normal. Lungs are clear. Diaphragm is normal. Bony thorax is inta ct. No evidence of a pneumothorax IMPRESSION: No active cardiopulmonary disease.
--- NOTE | 2022-05-24 04:37 | XR ---
EXAMINATION TYPE: XR pelvis AP view DATE OF EXAM: 05/24/2022 COMPARISON: NONE HISTORY: Pain TECHNIQUE: Single view FINDINGS: Pelvic ring is intact. The proximal femurs and hip joints are intact. Sacroiliac joints elsie ear normal. IMPRESSION: Negative pelvis x-ray exam.
--- NOTE | 2022-05-24 04:40 | CT ---
EXAMINATION TYPE: CT brain carleen wo con DATE OF EXAM: 05/24/2022 COMPARISON: None HISTORY: fall/pain CT DLP: 629.85 mGycm Automated exposure control for dose reduction was used. Images of the brain and cervical spine obtained with no contrast. Ventricles have normal size. There is no mass effect or midline shift. No sign of intracranial hemorr patrick. There is normal aeration of the mastoid sinuses. Skull base is intact. Sella turcica is normal. There is mucosal thickening in the maxillary and ethmoid sinuses. Orbital margins are intact. There is right-sided periorbital soft tissue swelling. The cervical vertebra have fairly normal spacing and alignment. Posterior elements are intact. No com pression fracture. Facet joints are intact. Prevertebral soft tissues are intact. IMPRESSION: Negative CT scan of the cervical spine. No fracture. Negative CT scan of the brain. No acute intracranial abnormality. Right frontal periorbital soft tissue swelling and hematoma. Ethmoid and maxillary sinusitis.
[2022-05-24] MEDS ORDERED: HYDROmorphone 1 MG/ML 1 ML SYRINGE IVP PRN (05:21)
[2022-05-24] MEDS ORDERED: ONDANSETRON 4 MG/2 ML VIAL IVP PRN (05:21)
[2022-05-24] MEDS ORDERED: NALOXONE 0.4 MG/ML 1 ML VIAL IV PRN (05:21)
[2022-05-24] MEDS ORDERED: THIAMINE 100 MG/ML 2 ML VIAL IM STA (05:23)
[2022-05-24] MEDS ORDERED: LORazepam 2 MG/ML INJ IV PRN ×3 (05:23)
[2022-05-24] MEDS ORDERED: SODIUM CHLORIDE 0.9% 1,000 ML IV SCH (05:30)
[2022-05-24] MEDS ORDERED: PANTOPRAZOLE 40 MG/10 ML VIAL IV SCH (09:00)
[2022-05-24 09:33] VITALS: BP 121/78; PULSE 89; TEMP 98
--- NOTE | 2022-05-24 09:47 | P.HPIM ---
History of Present Illness H&P Date: 05/24/22 This note will serve his H&P along with discharge summary. Patient is a 38-year-old male with no significant past medical history presents the ED after mechanical fall. Patient reports going to a bar with his friend around 3-4 PM. Patient reports having multiple drinks and getting intoxicated. It was time for him to go home, he attempted to call a cab, but the wait was 2 hours. He decided to walk home, tripped and fell on his face. He noted he was bleeding from his face. This prompted him to call 911. Patient states that he does not drink alcohol on a daily basis and denies any history of alcohol withdrawal. Patient reports facial pain at the site of laceration. He currently denies any headache, lower extremity edema, nausea or vomiting, fever chills, cough, chest pain, shortness breath, palpitations, changes in urination or bowel habits. No changes in appetite or weight. He denies any dizziness, numbness/weakness/tingling of extremities. In the ED, he was noted to be hype rtensive with BP of 153/108 and pulse of 109. CT face showed soft tissue swelling and laceration deformity in the right supraorbital region. CT head and C-spine was negative. Chest x-ray negative. Pelvic x-ray negative. CBC showed macrocytosis with MCV of 100.4. CMP showed glucose of 149. Serum alcohol level was 306. Patient was admitted under observation status. Review of systems has been performed and is negative except above. General: non toxic, no distress, appears at stated age Derm: warm, dry, laceration over the right supraorbital region with stitches intact Head: atraumatic, normocephalic, symmetric Eyes: EOMI, no lid lag, anicteric sclera, right supraorbital swelling Mouth: no lip lesion, mucus membranes moist Cardiovascular: S1S2 reg, no murmur Lungs: CTA bilateral, no rhonchi, no rales , no accessory muscle use Abdominal: soft, nontender to palpation, no guarding, no appreciable organomegaly Ext: no gross muscle atrophy, no edema, no contractures Neuro: CN II-XI grossly intact, no focal neuro deficits Psych: Alert, oriented, appropriate affect Discharge Diagnosis: #Alcohol intoxication #Right supraorbital laceration #Elevated BP without diagnosis of hypertension #Macrocytosis Patient presents after a mechanical fall. He is noted to have a right supraor bital laceration which required stitches in the ED. Patient is alert and oriented 3 at this time. He denies any history of alcohol withdrawal. He has been able to ambulate to the washroom without difficulties. Patients most recent BP is 121/78. His elevated BP is likely related to facial pain from his mechanical fall. His macrocytosis is likely related to chronic alcohol abuse. Patient is advised to follow up with his PCP within 7 days of discharge for removal of stitches. He is advised to take Keflex for 7 days to prevent infection. Patient advised to refrain from drinking alcohol. Patient verbalized understanding of the plan. Past Medical History Past Medical History: No Reported History History of Any Multi-Drug Resistant Organisms: None Reported Past Surgical History: No Surgical Hx Reported Past Anesthesia/Blood Transfusion Reactions: No Reported Reaction Past Psychological History: No Psychological Hx Reported Smoking Status: Current every day smoker Past Alcohol Use History: Daily Past Drug Use History: None Reported - Past Family History Family Family Medical History: No Reported History Medications and Allergies Home Medications Medication Instructions Recorded Confirmed Type Acetaminophen Tab [Tylenol] 500 mg PO Q6H PRN 06/14/21 06/14/21 History Bimatoprost [Lumigan 0.01% Ophth 1 drop RIGHT EYE HS 06/14/21 06/14/21 History Soln] Cephalexin [Keflex] 500 mg PO Q6HR 7 Days #42 cap 05/24/22 Rx Thiamine [Vitamin B-1] 100 mg PO BID-W/MEALS #60 tab 05/24/22 Rx Allergies Allergy/AdvReac Type Severity Reaction Status Date / Time No Known Allergies Allergy Verified 06/14/21 07:56 Physical Exam Vitals: Vital Signs Temp Pulse Pulse Resp BP BP Pulse Ox 05/24/22 08:50 98 F 89 16 121/78 98 05/24/22 06:46 92 16 119/80 98 05/24/22 02:01 97.8 F 109 H 16 153/108 97 Intake and Output 05/23/22 05/24/22 05/24/22 22:59 06:59 14:59 Other: Weight 68.039 kg 68.039 kg Results CBC & Chem 7: 05/24/22 03:39 05/24/22 03:39 Labs: Abnormal Lab Results - Last 24 Hours (Table) 05/24/22 05/24/22 Range/Units 03:39 03:39 MCV 100.4 H (80.0-100.0) fL Glucose 149 H (74-99) mg/dL Serum Alcohol 306 H* mg/dL Thrombosis Risk Factor Assmnt - Choose All That Apply Any of the Below Risk Factors Present?: Yes Each Factor Represents 1 point: Age 41-60 years Other Risk Factors: No Other congenital or acquired thrombophilia - If yes, enter type in comment: No Thrombosis Risk Factor Assessment Total Risk Factor Score: 1 Thrombosis Risk Factor Assessment Level: Low Risk
[2022-05-24] MEDS ORDERED: THIAMINE 100 MG TAB PO SCH (17:30)
== END 2022-05-24 12:33 | disposition home or self-care (01) ==
LOC: EC 01:46 → 5NMEDONC 05:21
PROVIDERS: ADMIT Internal Medicine; ATTEND Internal Medicine
DX: F10.129 Alcohol abuse with intoxication, unspecified (principal); Y90.8 Blood alcohol level of 240 mg/100 ml or more; S01.111A Laceration without foreign body of right eyelid and periocular area, initial encounter; W01.0XXA Fall on same level from slipping, tripping and stumbling without subsequent striking against object, initial encounter; R03.0 Elevated blood-pressure reading, without diagnosis of hypertension; D75.89 Other specified diseases of blood and blood-forming organs; F17.200 Nicotine dependence, unspecified, uncomplicated
CPT/HCPCS: 96372 ×2; 99285; 36415; 80053; 83690; 83735; 84100; 85025; 80320; 72170; 71045; 72125; 70486; 70450; G0378; J3411; C9113

== ENCOUNTER 2024-08-09 02:04 | Emergency (ER) | payer OTHER ==
[2024-08-09 02:40] VITALS: TEMP 98.5
--- NOTE | 2024-08-09 02:49 | ED ---
Fall HPI - General Chief Complaint: Fall Stated Complaint: Fall Time Seen by Provider: 08/09/24 02:09 Source: patient, RN notes reviewed Mode of arrival: ambulatory Limitations: no limitations - History of Present Illness Initial Comments: This is a 48-year-old male who presents to the emergency department for a head injury. Patient admits to consuming a few beers before going to bed last night, which he does often. He appeared to roll in his sleep and hit his head on the corner of a nightstand. He does not remember the whole incident but woke up after hitting his head and noticing all of the blood. He does have a laceration to his forehead. Not taking any blood thinners. Denies sustaining any other injuries. Tetanus vaccine is up-to-date. MD Complaint: fall - Related Data Home Medications Medication Instructions Recorded Confirmed Acetaminophen Tab [Tylenol] 500 mg PO Q6H PRN 06/14/21 05/24/22 Bimatoprost [Lumigan 0.01% Ophth 1 drop RIGHT EYE HS 06/14/21 05/24/22 Soln] Previous Rx's Medication Instructions Recorded Cephalexin [Keflex] 500 mg PO Q6HR 7 Days #42 cap 05/24/22 Thiamine [Vitamin B-1] 100 mg PO BID-W/MEALS #60 tab 05/24/22 Allergies Allergy/AdvReac Type Severity Reaction Status Date / Time No Known Allergies Allergy Verified 08/09/24 02:40 Review of Systems ROS Statement: Those systems with pertinent positive or pertinent negative responses have been documented in the HPI. ROS Other: All systems not noted in ROS Statement are negative. Past Medical History Past Medical History: No Reported History History of Any Multi-Drug Resistant Organisms: None Reported Past Surgical History: No Surgical Hx Reported Past Anesthesia/Blood Transfusion Reactions: No Reported Reaction Past Psychological History: No Psychological Hx Reported Smoking Status: Current every day smoker Past Alcohol Use History: Daily Past Drug Use History: None Reported - Past Family History Family Family Medical History: No Reported History General Exam Limitations: altered mental status General appearance: alert, in no apparent distress Head exam: Present: other (Vertical laceration above the right eyebrow) Eye exam: Present: normal appearance, PERRL, EOMI. Absent: scleral icterus, conjunctival injection, periorbital swelling Respiratory exam: Present: normal lung sounds bilaterally. Absent: respiratory distress, wheezes, rales, rhonchi, stridor Cardiovascular Exam: Present: regular rate, normal rhythm, normal heart sounds. Absent: systolic murmur, diastolic murmur, rubs, gallop, clicks Neurological exam: Present: alert, oriented X3, CN II-XII intact Psychiatric exam: Present: normal affect, normal mood Course Vital Signs 08/09/24 08/09/24 02:22 04:07 Temperature 98.5 F Pulse Rate 92 82 Respiratory 20 18 Rate Blood Pressure 137/87 119/67 O2 Sat by Pulse 97 95 Oximetry Procedures - Laceration Laceration #1 Consent Obtained: verbal consent Indication: laceration Site: face Size (cm): 5 Description: linear Depth: simple, single layer Anesthetic Used: lidocaine 1% Anesthesia Technique: local infiltration Amount (mls): 4 Pre-repair: wound explored, irrigated extensively Type of Sutures: nylon Size of Sutures: 5-0 Number of Sutures: 8 Technique: simple, interrupted Medical Decision Making - Medical Decision Making This is a 48-year-old male who presents to the emergency department for a head injury. Was pt. sent in by a medical professional or institution? @ -No Did you speak to anyone other than the patient for history? @ -No Did you review nursing and triage notes? @ -Yes, and I agree, it is accurate with regards to the patient's symptoms. Were old charts reviewed? @ -No Differential Diagnosis? @ -Differential Diagnosis Head Injury: Contusion, hematoma, intracranial hemorrhage, skull fracture, whiplash, concussion, this is not meant to be an all-inclusive list. EKG interpreted by me (3pts min.)? @ -Not obtained X-rays interpreted by me (1pt min.)? @ -Not obtained CT interpreted by me (1pt min.)? @ -Computed tomography scan of the brain and c-spine obtained. My interpretation identifies no evidence of an acute intracranial hemorrhage, skull fracture, or cervical spine fracture. U/S interpreted by me (1pt. min.)? @ -Not obtained What testing was considered but not performed? (CT, X-rays, U/S, labs)? Why? @ -None What meds were considered but not given? Why? @ -None Did you discuss the management of the patient with other professionals? @ -No Did you reconcile home meds? @ -No Was smoking cessation discussed for >3mins.? @ -No Was critical care preformed (if so, how long)? @ -No Were there social determinants of health that impacted care today? How? (Homelessness, low income, unemployed, alcoholism, drug addiction, transportation, low edu. Level, literacy, decrease access to med. care, custodial, rehab)? @ -Alcoholism, potentially leading to the fall Was there de-escalation of care discussed even if they declined? (Discuss DNR or withdrawal of care, Hospice)? @ -No What co-morbidities impacted this encounter? (DM, HTN, Smoking, COPD, CAD, Cancer, CVA, Hep., AIDS, mental health diagnosis, sleep apnea, morbid obesity)? @ -Alcohol use Was patient admitted / discharged? @ -Discharged. CT scan of the brain and C-spine obtained revealing no acute process. His laceration was cleansed and repaired with sutures. Tetanus vaccine is already up-to-date. Patient was clinically sober. He also presented with his father whom he lives with. Given that he was clinically sober and had a caregiver, he was able to be discharged home into his father's care. He is advised that he needs to return in 7 to 10 days to have the sutures removed and advised ibuprofen and Tylenol as needed for pain relief. Patient discharged home in stable condition. Case discussed with ED attending Dr. Moore. Return precautions reviewed in depth, the patient is instructed to return to the emergency department with any new, worsening, or concerning symptoms. Patient verbalized understanding. Undiagnosed new problem with uncertain prognosis? @ -None Drug Therapy requiring intensive monitoring for toxicity (Heparin, Nitro, Insulin, Cardizem)? @ -None Were any procedures done? @ -Laceration repair with sutures Diagnosis/symptom? @ -Fall, head injury, laceration Acute, or Chronic, or Acute on Chronic? @ -Acute Uncomplicated (without systemic symptoms) or Complicated (systemic symptoms)? @ -Uncomplicated Side effects of treatment? @ -None Exacerbation, Progression, or Severe Exacerbation] @ -Not applicable Poses a threat to life or bodily function? @ -No - Radiology Data Radiology results: report reviewed, image reviewed Disposition Clinical Impression: Fall, Head injury, Laceration Disposition: HOME SELF-CARE Instructions (If sedation given, give patient instructions): Care For Your Stitches (ED) Additional Instructions: Return to the emergency department with any new, worsening, or concerning symptoms and in 7 to 10 days to have your stitches removed. Alternate with ibuprofen and Tylenol as needed for pain relief. Follow up with your primary care provider in 1-2 days. Is patient prescribed a controlled substance at d/c from ED?: No Referrals: None,Stated [Primary Care Provider] - 1-2 days Time of Disposition: 03:58
[2024-08-09] MEDS: LIDOCAINE 1% INJ 10MG/ML (20 ML MDV) SQ ONE (02:50)
--- NOTE | 2024-08-09 03:46 | CT ---
EXAM: CT Head Without Intravenous Contrast CLINICAL HISTORY: ITS.REASON CT Reason: Head injury TECHNIQUE: Axial computed tomography images of the head/brain without intravenous contrast. CTDI is 45.2 mGy and DLP is 1099 mGy-cm. This CT exam was performed using one or more of the following dose reduction techniques: automated exposure control, adjustment of the mA and/or kV according to patient size, and/or use of iterative reconstruction technique. COMPARISON: No relevant prior studies available. FINDINGS: Brain: No hemorrhage or mass effect. Ventricles: No hydrocephalus. Bones/joints: Unremarkable. Soft tissues: Unremarkable. Sinuses: No air fluid level. Bilateral ethmoid and maxillary sinus mucosal thickening Mastoid air cells: Clear. IMPRESSION: No acute hemorrhage, hydrocephalus, or mass effect. EXAM: CT Cervical Spine Without Intravenous Contrast CLINICAL HISTORY: ITS.REASON CT Reason: Head injury TECHNIQUE: Axial computed tomography images of the cervical spine without intravenous contrast. CTDI is 14.2 mGy and DLP is 362.6 mGy-cm. This CT exam was performed using one or more of the following dose reduction techniques: automated exposure control, adjustment of the mA and/or kV according to patient size, and/or use of iterative reconstruction technique. COMPARISON: No relevant prior studies available. FINDINGS: Vertebrae: No acute fracture. Discs/spinal canal/neural foramina: degenerative changes. Soft tissues: No prevertebral swelling. IMPRESSION: No acute fracture or subluxation.
[2024-08-09 04:11] VITALS: BP 119/67; PULSE 82; RESP 18
== END 2024-08-09 04:13 | disposition home or self-care (01) ==
LOC: EC 02:04
DX: S01.81XA Laceration without foreign body of other part of head, initial encounter (principal); F10.90 Alcohol use, unspecified, uncomplicated; F17.200 Nicotine dependence, unspecified, uncomplicated; W06.XXXA Fall from bed, initial encounter
CPT/HCPCS: 72125; 70450; 12013; 99284; J2003